=== PATIENT | male | born 1985 | race Caucasian/White ===

== ENCOUNTER 2025-01-25 07:05 | Emergency (ER) | payer OTHER, SELFPAY ==
--- OUTSIDE RECORDS SUMMARY | 2014-06-30 09:04 | XMS_ITS | Continuity of Care Document ---
Author Organization [facility] Address [address] [place] [address] Phone Care Team Providers Care Produce Sorter Name Role Phone Trinity Leigh Unavailable Unavailable Allergies, Adverse Reactions, Alerts Substance Reaction Status Criticality No Known Allergies Active No Inform ation Medications Medication Instructions Dosage Effective Dates (start - stop) Status Comments hydroxyzine HCl 25 mg tablet take 1 tablet by oral route 4 times every day if needed for anxiety - Active gabapentin 600 mg tablet take 1 tablet by oral route 3 times every day 600 MG - Active sertraline 100 mg tablet take 1 tablet by oral route every day 100 MG - Active Zubsolv 5.7 mg-1.4 mg sublingual tablet take one tab SL BID - Active Procedures Procedure Date OFFICE VISIT/EST LEVEL III OFFICE VISIT/EST LEVEL III OFFICE VISIT/EST LEVEL III OFFICE VISIT/EST LEVEL III OFFICE VISIT/EST LEVEL III OFFICE VISIT/NEW LEVEL III IMMUNIZATION ADM/SNGL CBC W/DIFF. METABOLIC PANEL: CHEM 19 HEPATITIS C/QUANT. Flu Quad; MultiDose 3+ Yrs (C) EXMPT Feb Advance Directives Directive Yes / No Effective Date File Name No Information Encounters Encounter Description Practice Location Reason(s) For Visit Diagnoses Date Provider Providers Copied on Encounter [facility], [address], [place], [place], [id number], tel:[phone] [facility] No Information 5 Justen Petersen. [address] [place], [place], [id number] , [place]. tel: [phone] [facility], [address] [facility] [address], [place], [place], [address], [place] tel:[phone] [facility] Depressive disorder, not elsewhere classified 5 Justen Petersen. [address] [place], [place], [address] , [place]. tel: [phone] OFFICE VISIT/EST LEVEL III [facility], [address] [facility] [address], [place], [place], [address], [place] tel:[phone] [facility] depression (chief complaint) Depressive disorder, not elsewhere classifiedAnxiet y state, unspecified 5 Justen Petersen. [address] [place], [place], [address] , [place]. tel: [phone] OFFICE VISIT/EST LEVEL III [facility], [address] [facility] [address], [place], [place], [address], [place] tel:[phone] [facility] depression (chief complaint)I nsomnia (chief complaint)A DD (chief complaint) Anxiety state, unspecifiedInsom niaADHD (attention deficit hyperactivity disorder) 4 Justen Petersen. [address] [place], [place], [address] , [place]. tel: [phone] OFFICE VISIT/EST LEVEL III [facility], [address] [facility] [address], [place], [place], [address], [place] tel:[phone] [facility] depression (chief complaint)I nsomnia (chief complaint) InsomniaAnxiety state, unspecified 0 - 4 Justen Petersen. [address] [place], [place], [address] , [place]. tel: [phone] OFFICE VISIT/[facility] III [facility], [address] [facility] [address], [place], [place], [address], [place] tel:[phone] [facility] establish care (chief complaint)d epression (chief complaint)I nsomnia (chief complaint) Anxiety state, unspecifiedDepre ssive disorder, not elsewhere classifiedUnspec ified viral hepatitis C without hepatic comaInsomnia 201 4 Justen Petersen. [address] [facility], [place], [place], [address] , [place]. [phone] Family History Family Member Type Diagnosis Age At Onset Brother Problem (finding) Anxiety Brother Problem (finding) GERD Mother Problem (finding) Crohn's disease Immunizations Vaccine Date Status Comments Flu Quad (MDV) 3 and up administered Source: New Immuniza tion Record Payers Payer name Insurance type Covered constitution party ID Authoriza tion(s) [employer] Medicaid CI [id number] [facility] [id number] [employer] Medicaid CI [id number] [facility] [id number] Social History Type Description Quantity Date Captured Comments Alcohol Use Details Unknown Caffeine Use Details Unknown Tobacco Use Status Smoking Status No Information Sex Male Chief Complaint And Reason For Visit No Information Reason For Referral Reason For Referral No Information Plan Of Treatment Date Type Action Status Referral Referred To: Alcides Muñoz Ordered: Referrals: Psychiatry. Alcides Muñoz. Evaluate and treat ordered History Of Present Illness Encounter Date Complaint History Of Prese nt Illness depression There is improve ment of initial symptoms. The patient reports functioning as somewhat difficult. The patient presents with anxious/fearful thoughts, difficulty falling asleep, racing thoughts and restlessness but denies difficulty staying asleep, diminished interest or pleasure or thoughts of or suicide. The patient's risk factors include drug abuse and history of depression. The depression is aggravated by conflict or stress and drug use. Additional information: pt states stratera makes him hyper and does not want to take. ADD pt states he has been told multiple times he has ADD; he is able to focus on things he likes, but not other things Insomnia The patient pres ents for insomnia. The patient has the following risk factors for insomnia: use of alcohol. The patient is experiencing difficulty concentrating. Additional information: pt stopped meds approx 1 wk ago due to fatigue in daytime. depression There is improve ment of initial symptoms. The patient presents with difficulty concentrating, racing thoughts and restlessness but denies anxious/fearful thoughts or thoughts of or suicide. The patient's risk factors include drug abuse. The depression is aggravated by conflict or stress and drug use. Additional information: pt states meds helping , pt having some side effects of impotence. Insomnia The patient pres ents for insomnia. The patient has the following risk factors for insomnia: use of alcohol. The patient is experiencing depression. The patient denies changes in appetite, difficulty initiating sleep or difficulty maintaining sleep. Additional information: pt states meds help. depression The patient does not present with difficulty falling asleep or difficulty staying asleep. Additional information: pt states meds help. Insomnia The patient pres ents for insomnia. The patient has the following risk factors for insomnia: use of alcohol. The patient is experiencing depression, difficulty initiating sleep and difficulty maintaining sleep. The patient denies changes in appetite or wheezing. depression The patient pres ents with difficulty falling asleep, difficulty staying asleep and restlessness. The patient's risk factors include history of depression. Additional information: pt states issues since in [facility]. establish care pt from recovery center Functional Status Date Functional Assessmen t No Information Instructions Date Instruction Additional Infor maryam Take medication(s) as prescribed Related to Depressive disorder, not elsewhere classified 911 or ER for suicid al/homicidal ideation Related to Depressive disorder, not elsewhere classified Follow up with counselor Related to Depressive disorder, not elsewhere classified med side effects can mimic symptoms of depression; notify for undesired sex Related to Depressive disorder, not elsewhere classified med side effects can mimic symptoms of depression; notify for undesired sex Related to Anxiety state, unspecified Take medication(s) as prescribed Related to Anxiety state, unspecified 911 or ER for suicid al/homicidal ideation Related to Anxiety state, unspecified med side effects can mimic symptoms of depression; notify for undesired sex Related to Anxiety state, unspecified Take medication(s) as prescribed Related to Anxiety state, unspecified 911 or ER for suicid al/homicidal ideation Related to Anxiety state, unspecified med side effects can mimic symptoms of depression; notify for undesired sex Related to Anxiety state, unspecified Take medication(s) as prescribed Related to Anxiety state, unspecified 911 or ER for suicid al/homicidal ideation Related to Anxiety state, unspecified Assessments Type Assessment Date No Information Patient Care Teams Name Effective Dates (start - stop) Status Members No Information
--- OUTSIDE RECORDS SUMMARY | 2023-10-20 06:30 | XMS_ITS ---
Author Organization [facility] Address [address] [place], [place] [address] Care Team Providers Care Critical Care Physician Assistant Name Role Phone Traci Sr Unavailable [phone] REASON FOR VISIT FERNANDO Encounters Encounter Location Date Provider Diagnosis [facility] [address] [place] [address] 10/20/2023 Traci Sr Plan Of Treatment No Information Progress Notes * Jose WISDOM PDOB:1985 (39 yo M)Acc No.[id number]:10/20/2023 Patient: Maged Jose QUINONES Provider: Padmini Santizo :1985 A ge:38 Y S ex:Male Date:10/20/2023 Address:[address], [facility] Subjective: * Chief Complaints: * 1 . FERNANDO. * Medical History: Objective: * Vitals: Assessment: Plan: * Treatment: * * Electronic signature of Mellissa Sr DDS on 01/25/2025 at 07:23 AM EDT Sign off status: Pending * Provider: Padmini Santizo Date: 10/20/2023 Generated for Wendi villalpando/Kwasi/eTandraesmitting on: 01/25/2025 07:23 AM EDT
--- OUTSIDE RECORDS SUMMARY | 2024-02-11 05:00 | XMS_ITS ---
Author Organization [facility] Address [address] [place] [address] Care Team Providers Care Landcare Facilitator Name Role Phone DO NOT USE NONE, DO NOT USE NONE Primary Care Pr ovider Unavailable JEANNA ANDREWS Unavailable [phone] JOHN FRANCO Unavailable [phone] REASON FOR VISIT RIGHT FOREARM ABSCESS Encounters Encounter Location Date Provider Diagnosis [facility] [address] [place], [place] [id number] 02/11/2024 JOHN FRANCO Plan Of Treatment No Information Progress Notes * Dusty WISDOMDOB:1985 (39 yo M)Acc No.[id number]:02/11/2024 Patient: Dusty MCLEOD Provider: Jessy FRANCO MD :1985 A ge:38 Y S ex:Male Date:02/11/2024 [address] [id number] Pcp: Subjective: * Chief Complaints: * 1 . RIGHT FOREARM ABSCESS. * Medical History: Objective: * Vitals: Assessment: Plan: * Treatment: * Billing Information: * Visit Code: * Procedure Codes: * Electronic signature of JONI FRANCO MD on 01/25/2025 at 07:23 AM EDT Sign off status: Pending * Provider: Jessy FRANCO MD Date: 1 Generated for Isii ng/Fadarrylg/eTransmitting on: 0 01/25/2025 07:23 AM EDT
--- OUTSIDE RECORDS SUMMARY | 2024-02-11 06:00 | XMS_ITS ---
Author [facility] Address [address] [place] [address] [place] [address] Care Team Providers Care Business Management Manager Name Role Phone DO NOT USE NONE, DO NOT USE NONE Primary Care Pr ovidmiriam Unavailable JEANNA ANDREWS Unavailable [phone] JOHN FRANCO Unavailable [phone] REASON FOR VISIT I and D R forearm abscess Problems Problem Type SNOMED Code ICD Code Onset Dates Problem Status W/U Status Risk Notes Problem Abscess of forearm (79945989) Abscess of forearm, right (L02.413) Active confirmed Problem Other streptococcus as the cause of diseases classified elsewhere (B95.4) Active confirmed Encounters Encounter Location Date Provider Diagnosis [facility] [address] [facility] [place] [id number] 02/11/2024 JOHN FRANCO Abscess of forearm, right L02.413 and Other streptococcus as the cause of diseases classified elsewhere B95.4 Assessments Encounter Date Diagnosis (ICD Code) Assessment Notes Treatment Notes Treatment Clinical Notes Section Notes 02/11/2024 Abscess of forearm, right (ICD-10 - L02.413) 02/11/2024 Other streptococcus as the cause of diseases classified elsewhere (ICD-10 - B95.4) Plan Of Treatment No Information Progress Notes * NITESHDusty MonteroDOB:1985 (39 yo M)Acc No.[id number]:02/11/2024 Patient: Dusty MCLEOD Provider: Jessy FRANCO MD :1985 A ge:38 Y S ex:Male Date:02/11/2024 [id number] Pcp: * Billing Information: * Visit Code: * Procedure Codes: 74416 INITIAL INPATIENT CARE - L2. Modifiers: 57 [id number] INCISION DRAINAGE FOREARM OR WRIST DEEP. Modifiers: RT * Electronic signature of JONI FRANCO MD on 01/25/2025 at 07:23 AM EDT Sign off status: Pending * Provider: Jessy FRANCO MD Date: 1 Generated for Wendi villalpando/Kwasi/Cosmeitting on: 0 01/25/2025 07:23 AM EDT
[2025-01-25 07:11] VITALS: BP 140/87; PULSE 92; TEMP 37.6; O2SAT 98; BMI 26.5
--- OUTSIDE RECORDS SUMMARY | 2025-01-25 07:23 | XMS_ITS | Clinical Summary ---
Author Organization [facility] Address [address] [place] [address] Care Team Providers Care Rail Filler Name Role Phone Unknown, Attending Provider Primary Care Provide r Unavailable Sanajero Richie Hernandez Source Comments This information has been disclosed to you from confidential records protectedfrom disclosure by state law. You shall make no further disclosure of thisinformation without the specific, written, and informed release of theindividual to whom it pertains, or as otherwise permitted by law. A generalauthorization for the release of medical or other information is not sufficientfor the purposes of therelease of HIV test results or diagnoses. [id number] Allergies Active Allergy Reactions Criticality Noted Date Comments Bupropion Other (See Comments) 06/11/2022 seizures Lamotrigine Rash High 07/02/2022 Medications * This document contains information received from the source organization and may not represent a complete record from that organization. levETIRAcetam (KEPPRA) 500 MG tabletIndication s:Focal epilepsy ([facility]) Take 1 tablet (500 mg total) by mouth 2 times a day. 60 tablet 07/02/2022 Active Active Problems Problem Noted Date Diagnosed Date Pain of left tibia 04/08/2017 Pyuria 03/29/2017 Tibia/fibula fracture, shaft , left, closed, initial encounter 03/27/2017 Immunizations Immunization Administration Dates Next Due Tetanus 11/23/2008 Family History Medical History Relation Comments Seizures Maternal Grandfather Suicidality Maternal Grandfather Relation Status Comments Father Alive Maternal Grandfather Mother Alive Social History Tobacco Use Types Packs/Day Years Used Date Smoking Tobacco: Every Day E-cigs/Vape Passive Smoke Exposure: Never Smokeless Tobacco: Former Chew Tobacco Cessation:Ready to Q uit: Not Asked; Counseling Given: Not Answered Alcohol Use Standard Drinks/Week Comments Not Currently 0 (1 standard drink = 0.6 oz pure alcohol) prior alcohol use, last use 4 months ago PHQ-2 Answer Date Recorded PHQ-2 Total Score 0 06/24/2022 Yearly Questionnaire Answer Date Record ed Do you need any assistance w ith obtaining housing, meals, medication, transportation or medical equipment? No 06/24 Assistance needed for: Not on file 3 Yearly Questionnaire Answer Date Record ed Do you need any assistance w ith obtaining housing, meals, medication, transportation or medical equipment? No 06/24 Assistance needed for: Not on file 3 Yearly Questionnaire Answer Date Record ed Do you need any assistance w ith obtaining housing, meals, medication, transportation or medical equipment? No 06/24 Assistance needed for: Not on file Sex and Gender Information Value Date Recorded Sex Assigned at Not on file Legal Sex Male 9:35 PM EST Gender Identity Not on file Sexual Orientation Not on file Last Filed Vital Signs Vital Sign Reading Time Taken Comments Blood Pressure 120/75 07/02/2022 12:27 PM EST Pulse 76 07/02/2022 12:27 PM EST Temperature 36.7 C (98.1 F) 05/31/2022 10:32 AM EST Respiratory Rate 18 07/02/2022 12:27 PM EST Oxygen Saturation 98% 07/02/2022 12:27 PM EST Inhaled Oxygen Concentration 98% 07/02/2022 1 2:27 PM EST Weight 77.6 kg (171 lb) 07/02/2022 12:27 PM EST Height 179.1 cm (5' 10.5 ) 07/02/2022 12:[address] Body Mass Index 24.19 07/02/2022 12:27 PM EST Plan of Treatment Health Maintenance Due Date Last Done Comments Alcohol Misuse Screening 2003 Immunization: Pneumococcal ( 1 of 2 - PCV) 2004 Depression Screening 06/24/2023 06/24/2022, 01/07/20 19 Immunization: COVID-19 ( season) 2024 Immunization: Influenza (MyC abreu) (#1) 2024 03/10/2014 Immunization: DTaP/Tdap/Td ( 8 - Td or Tdap) 06/25/2032 06/25/2022, 02/24/2022, 11/25/1997, Additional history exists Hepatitis C Screening (Ma-papeteriet) Completed 7, 03/28/2017 HIV Screening Completed 03/29/2017 Medical Devices Implanted Type Area Sr Risk Management Consultant Device Identifier Shelf Expiration Date Model / Serial / Lot Nail 9mm 345mm Tib T2 Im Std - [id number] Implanted:Qty: 1 on 03/28/2017 by Mil Benavides MD at [facility] Main Orthopedic Left: Tibia [employer] 12/26/2021 [id number] S / / [id number] Scr Bn 5mm 35mm Ti Ft Lck Strl - [id number] Implanted:Qty: 1 on 03/28/2017 by Mil Benavides MD at [facility] Main Screw Left: Tibia [employer] 12/26/2021 [id number] S / / [id number] Scr Bn 5mm 45mm Ti Ft Lck Strl - [id number] Implanted:Qty: 1 on 03/28/2017 by Mil Benavides MD at [facility] Main Screw Left: Tibia [employer] 11/25/2021 [id number] S / / [id number] Scr Bn 5mm 40mm Ti Ft Lck Strl - [id number] Implanted:Qty: 1 on 03/28/2017 by Mli Benavides MD at [facility] Main Screw Left: Tibia [employer] 11/25/2021 [id number] S / / [id number] Scr Bn 5mm 50mm Ti Ft Lck Strl - [id number] Implanted:Qty: 1 on 03/28/2017 by Mil Benavides MD at [facility] Main Screw Left: Tibia [employer] 12/26/2021 [id number] S / / [id number] Scr Bn 5mm 35mm Ti Ft Lck Strl - [id number] Implanted:Qty: 1 on 03/28/2017 by Mil Benavides MD at [facility] Main Screw Left: Tibia [employer] 12/26/2021 [id number] S / / [id number] Procedures Procedure Name Priority Date/Time Associated Diagnosis Comments HIV 1+2 ANTIBODY/ANTIGEN WITH REFLEX Routine 03/29/2017 10:52 AM EST HEPATITIS C ANTIBODY Routine 03/28/2017 8:06 PM EST from Last 3 Months or Most Recently Relevant to Health Maintenance Results * HIV 1+2 Antibody/Antigen with Reflex (03/29/2017 10:52 AM EST) HIV 1+2 AB/AGN Nonreactive Nonreactive 03/29/2017 11:51 AM EST [facility] Serum specimen (specimen) 03/29/2017 10:52 AM EST 03/29/2017 11:07 AM EST [facility] - 03/29/2017 11:51 AM EST HIV-1 p24 Antigen and HIV-1/HIV-2 Antibody not detected. Andrade Toscano MD LAB BLOOD ORDERABLES Final Resul t [facility] [address] * (ABNORMAL) Hepatitis C Antibody (03/28/2017 8:06 PM EST) HCV Ab Reactive( A) Nonreactive 03/28/2017 9:47 PM EST [facility] Comment: Health Department notified in accordance with reportable infectious disease guidelines. Health Department notified in accordance with reportable infectious disease guidelines. HCVAB Number 13.30(H) 0.00 - 0.79 S/CO 03/28/2017 9:47 PM EST [facility] Serum specimen (specimen) 03/28/2017 8:06 PM EST 03/28/2017 8:20 PM EST Narrative [facility] - 03/28/2017 9:47 PM EST Presumptive evidence of antibodies to HCV: follow CDC recommendations for supplemental testing. Lila Garcia MD LAB BLOOD ORDERABLES Final Result [facility] [address] [place] [address], [facility] from Last 3 Months or Most Recently Relevant to Health Maintenance Insurance [employer] Member Subscriber Plan / Payer (Ef fective 2017-Present) Name:Dusty Wisdom Relation to Subscriber:Self Name:Dusty Wisdom Payer ID:[id number] Group ID:Not on file Type:Work Comp Address: [address] [place] [address] Advance Directives For more information, please contact: [phone] * Full Code (Latest Code Status on File) Date Activated Date Inactivated Comments 02/11/2021 10:49 PM 02/14/2021 3:03 PM * Full Code Date Activated Date Inactivated Comments 03/27/2017 4:44 PM 03/29/2017 9:01 PM Care Teams Rail Filler Relationship Specialty Start Date End Date Unknown, Attending Provider PCP - General 06/17/22 Richie Schulz Consulting Physician [facility] Neurology 09/26/23
--- OUTSIDE RECORDS SUMMARY | 2025-01-25 07:23 | XMS_ITS | Clinical Summary ---
Author Organization [facility] Address [address], [address] [place] [address] Care Team Providers Care Exchange Engineer Name Role Phone Unavailable Primary Care Provider Unavailabl e Allergies No known active allergies Medications ibuprofen (ADVIL;MOTRIN) 600 MG tablet Take 1 tablet by mouth every 6 hours as needed for Pain 30 tablet 0 10/06/2015 Active Multiple Vitamins-Minera ls (THERAPEUTIC MULTIVITAMIN-MT NERALS) tablet Take 1 tablet by mouth daily Active naproxen (NAPROSYN) 500 MG tablet Take 1 tablet by mouth 2 times daily for 20 doses 20 tablet 03/16/2017 Active lidocaine (LIDODERM) 5 % Place on affected air for up to 12 hours. Do not leave on longer than 12 hours 30 patch 03/17/2017 Active naproxen (NAPROSYN) 500 MG tablet Take 1 tablet by mouth 2 times daily as needed for Pain 30 tablet 03/17/2017 Active methocarbamol (ROBAXIN) 500 MG tablet Take 2 tablets by mouth 4 times daily as needed (spasms) 80 tablet 03/17/2017 Active ondansetron (ZOFRAN) 4 MG tablet Take 1 tablet by mouth every 8 hours as needed for Nausea or Vomiting 16 tablet 09/08/2017 Active dicyclomine (BENTYL) 10 MG capsule Take 1 capsule by mouth 3 times daily as needed (abdominal cramping) 30 capsule 09/08/2017 Active Social History Tobacco Use Types Packs/Day Years Used Date Smoking Tobacco: Some Days Cigarettes Smokeless Tobacco: Current Tobacco Cessation:Ready to Q uit: Not Asked; Counseling Given: Not Answered Alcohol Use Standard Drinks/Week Comments No 0 (1 standard drink = 0.6 oz pur e alcohol) Recovery Sex and Gender Information Value Date Recorded Sex Assigned at Not on file Legal Sex Male 11:43 PM EST Gender Identity Not on file Sexual Orientation Not on file Last Filed Vital Signs Vital Sign Reading Time Taken Comments Blood Pressure 140/83 03/02/2022 6:15 PM EDT Pulse 101 03/02/2022 6:15 PM EDT Temperature 36.4 C (97.6 F) 03/02/2022 6:15 PM EDT Respiratory Rate 17 03/02/2022 6:15 PM EDT Oxygen Saturation 100% 03/02/2022 6:15 PM EDT Inhaled Oxygen Concentration - - Weight 86.2 kg (190 lb) 03/02/2022 7:21 PM EDT Height 180.3 cm (5' 11 ) 03/16/2017 11:16 AM EST Body Mass Index 26.5 03/16/2017 11:16 AM EST Plan of Treatment Health Maintenance Due Date Last Done Comments Depression Screen 1997 Varicella vaccine (1 of 2 - 13+ 2-dose series) 1998 Pneumococcal 0-49 years Vaccine (1 of 2 - PCV) 2004 Flu vaccine (#1) 11/26/2024 COVID-19 Vaccine (1 - 2023-2 5 season) 2024 DTaP/Tdap/Td vaccine (2 - Td or Tdap) 02/25/2032 02/24/2022 Hib vaccine Completed 08/09/1988 Hepatitis B vaccine Completed 06/24/1998, 12/23/1997, 11/25/1997 HIV screen Completed 01/11/2022 Hepatitis C screen Completed 01/11/2022, 08/20/2019 HPV vaccine (No Doses Required) Completed Hepatitis A vaccine Aged Out No longe r eligible based on patient's age to complete this topic Meningococcal (ACWY) vaccine Aged Out No longer eligible based on patient's age to complete this topic Meningococcal B vaccine Aged Out No l onger eligible based on patient's age to complete this topic Polio vaccine Aged Out No longer elig ible based on patient's age to complete this topic Procedures Procedure Name Priority Date/Time Associated Diagnosis Comments HIV SCREEN Routine 01/11/2022 1:57 PM EDT HEPATITIS PANEL, ACUTE Routine 01/11/2022 1:57 PM EDT from Last 3 Months or Most Recently Relevant to Health Maintenance Results * (ABNORMAL) Hepatitis Panel, Acute (01/11/2022 1:57 PM EDT) Hep A IgM Non-react ramon Non-react ramon 01/12/2022 3:05 AM EDT [facility] Hep B Core Ab, IgM Non-react ramon Non-react ramon 01/12/2022 12:57 PM EDT [facility] Hep B S Ag Interp Non-react ramon Non-react ramon 01/12/2022 3:05 AM EDT [facility] Hep C Ab Interp REACTIVE( A) Non-react ramon 01/12/2022 1:59 PM EDT [facility] Comment: REACTIVE Screen: Confirmation with Hepatitis C RIBA not available. Depending on clinical history, Hepatitis C Virus (HCV)by Quantitative NAAT ([id number]) should be considered as an alternative to this test although it is not an equivalent. If HCV by Quantitative NAAT is desired, please reorder. A new sample may be needed due to specimen requirements for HCV by Quantitative NAAT. 01/11/2022 1:57 PM EDT 01/12/2022 1:04 AM EDT Narrative [facility] - 01/12/2022 2:00 PM EDT CALL doctor [id number] tel. [phone], [phone] us Lakia Santa MARKETING SERVICES MANAGER - FIELD HEALTH OFFICER IMMUNOLOGY ORDERABL ES Final Result [facility] [address] [facility]. [address] [phone] * HIV Screen (01/11/2022 1:57 PM EDT) HIV Ag/Ab Non-Reacti ve Non-reacti ve 01/12/2022 1:45 PM EDT [facility] HIV-1 Antibody Non-Reacti ve Non-reacti ve 01/12/2022 1:45 PM EDT [facility] HIV ANTIGEN Non-Reacti ve Non-reacti ve 01/12/2022 1:45 PM EDT [facility] HIV-2 Ab Non-Reacti ve Non-reacti ve 01/12/2022 1:45 PM EDT [facility] 01/11/2022 1:57 PM EDT 01/12/2022 1:04 AM EDT Narrative [facility] - 01/12/2022 12:35 PM EDT CALL doctor [id number] tel. [phone], [phone] Lakia Santa MARKETING SERVICES MANAGER - FIELD HEALTH OFFICER IMMUNOLOGY ORDERABL ES Edited Result - Final [facility]. [address] [phone] from Last 3 Months or Most Recently Relevant to Health Maintenance Insurance [facility] MED[facility]
--- OUTSIDE RECORDS SUMMARY | 2025-01-25 07:23 | XMS_ITS | Patient Health Record ---
Author Organization [facility] Address [address] [place] [id number] Care Team Providers Care Data Science And Iot Manager Name Role Phone DO NOT USE NONE, DO NOT USE NONE Primary Care Pr ovidmiriam Unavailable JEANNA ANDREWS Unavailable [phone] JOHN FRANCO Unavailable [phone] Reason For Referral No Information Problems Problem Type SNOMED Code ICD Code Onset Dates Problem Status W/U Status Risk Notes Problem Other streptococcus as the cause of diseases classified elsewhere (B95.4) Active confirmed Problem Abscess of forearm (01256489) Abscess of forearm, right (L02.413) Active confirmed Problem Closed fracture pubis (974500271) Pubic ramus fracture, left, closed, initial encounter (S32.592A) Active confirmed Problem Compression fracture of L1 lumbar vertebra, closed, initial encounter (S32.010A) Active confirmed Encounters Encounter Location Date Provider Diagnosis [facility] OP [address] [place], [place] [id number] 02/11/2024 JOHN FRANCO Abscess of forearm, right L02.413 and Other streptococcus as the cause of diseases classified elsewhere B95.4 [facility] [address] [address] [facility] [address] [facility] [address] [place], [place] [id number] 02/24/2024 JOHN FRANCO Assessments Encounter Date Diagnosis (ICD Code) Assessment Notes Treatment Notes Treatment Clinical Notes Section Notes 02/11/2024 Abscess of forearm, right (ICD-10 - L02.413) 02/11/2024 Other streptococcus as the cause of diseases classified elsewhere (ICD-10 - B95.4) Plan Of Treatment No Information Insurance Providers Payer Name Payer Address Payer Phone Subscriber Number Group Number Insured Name Patient Relationship to Insured Coverage Start Date Coverage End Date [employer] [address] [address] [place] [phone] [id number] Dusty Wisdom Self - patient is the insured
--- OUTSIDE RECORDS SUMMARY | 2025-01-25 07:23 | XMS_ITS | Clinical Summary ---
Author Organization [facility] 06 Care Team Providers Care Clinical Immunologist Name Role Phone Pcp, None Primary Care Provider [phone] Allergies Active Allergy Reactions Criticality Noted Date Comments None 08/23/2002 Medications naloxone 4 mg/0.1 mL LIQD nasal spray SIG: Ashby one puff into one nostril upon signs of opioid overdose. Call 911. May repeat x 1 (Once). 1 each 1 08/14/2021 Active hydrOXYzine Pamoate (VISTARIL) 25 mg capsule Take 25 mg by mouth 3 (three) times daily as needed. Active guanFACINE (TENEX) 1 MG TABS Take 1 mg by mouth nightly. Active Buprenorphine ER (SUBLOCADE) 300 MG/1.5ML SOSY Use every 30 (thirty) days. Active citalopram (CELEXA) 20 MG TABS Take 1 tablet by mouth daily. 30 tablet 06/26/2022 Active levETIRAcetam (KEPPRA) 500 mg tablet Take 1 tablet by mouth 2 (two) times daily. 60 tablet 06/26/2022 Active Active Problems Problem Noted Date Diagnosed Date Recurrent seizures 06/26/2022 History of drug abuse in remission 06/26/2022 Lactic acidosis 06/26/2022 Face lacerations, initial encounter 06/26/2022 Closed fracture of middle phalanx of finger 04/2022 Varicella Other acne Immunizations Immunization Administration Dates Next Due DTP 02/23/1990, 7,1985,1985,1985 Hepatitis B, Adult 06/24/1998,12/23/1997, 998 Hib PRP-T conjugate, IM (Act HIB, Hiberix) 08/09/1988 Measles/Mumps/Rubella, SQ 12/23/1997,07/08/1986 TB-PPD 07/10/1999,01/13/1995 Tdap (Tetanus, Diphtheria & Pertussis) 06/25/2022 Trivalent Poliovirus Vaccine , Live, Oral 02/23/1990,11/21/1986,1985,1985 dT, adult 11/25/1997 Family History Medical History Relation Name Comments Epilepsy[Other] Maternal Grandfather Cancer Neg Hx Diabetes Neg Hx Heart Disease Neg Hx High BP Neg Hx High Cholesterol Neg Hx Relation Name Status Comments Maternal Grandfather Social History Tobacco Use Types Packs/Day Years Used Date Smoking Tobacco: Every Day Cigarettes 1 3 Smokeless Tobacco: Never Tobacco Cessation:Ready to Q uit: No; Counseling Given: Yes Alcohol Use Standard Drinks/Week Comments Yes 0 (1 standard drink = 0.6 oz pur e alcohol) weekly Food Insecurities Answer Date Recorded Worried about running out of food Not on file 05/17/2023 Food Bought Not on file 05/17/2023 Housing/Utilities Answer Date Recorded Worried about losing home Not on file 2023 Stayed outside house Not on file 05/17/2023 Unable to get utilities Not on file 05/17/19 Interpersonal Safety Answer Date Record ed Feel physically or emotionally unsafe where curr ently live Not on file 05/17/2023 Harm by anyone Not on file 05/17/2023 Emotionally Harmed Not on file 05/17/2023 Transportation Answer Date Recorded Worried about transportation Not on file Utilities Answer Date Recorded Worried about losing home Not on file 2023 Stayed outside house Not on file 08/29/2023 Unable to get utilities Not on file 08/29/19 Sex and Gender Information Value Date Recorded Sex Assigned at Not on file Legal Sex Male 11:32 PM EDT Gender Identity Not on file Sexual Orientation Not on file Last Filed Vital Signs Vital Sign Reading Time Taken Comments Blood Pressure 100/54 06/26/2022 5:28 PM EST Pulse 62 06/26/2022 5:28 PM EST Temperature 35.4 C (95.8 F) 06/26/2022 5:28 PM EST Respiratory Rate 16 06/26/2022 5:28 PM EST Oxygen Saturation 99% 06/26/2022 5:28 PM EST Inhaled Oxygen Concentration - - Weight 77.6 kg (171 lb) 06/26/2022 3:10 AM EST Height 180.3 cm (5' 10.98 ) 06/26/2022 3:[address] Body Mass Index 23.86 06/26/2022 3:10 AM EST Plan of Treatment Health Maintenance Due Date Last Done Comments Pneumococcal 0-49 (1 of 2 - PCV) 2004 HPV (1 - 3-dose SCDM series) 2012 Influenza Vaccine (#1) 2024 DTap,Tdap,and Td (8 - Td or Tdap) 06/25/2032 06/25/2022, 02/24/2022, 02/23/1990, Additional history exists RSV Vaccine (60+ or ) (1 - 1-dose 75+ series) 2060 Meningococcal conjugate valent 4 (MCV4) Aged Out No longer eligible based on patient's age to complete this topic RSV Immunization (<20 months) Aged Out No longer eligible based on patient's age to complete this topic Insurance [facility] MEDICAID on file Advance Directives * Full Code (Latest Code Status on File) Date Activated Date Inactivated Comments 06/26/2022 12:19 AM 06/26/2022 8:47 PM Care Teams Clinical Immunologist Relationship Specialty Start Date End Date Pcp, None, PCP - General Internal Medicine 11/08/15
--- OUTSIDE RECORDS SUMMARY | 2025-01-25 07:23 | XMS_ITS | Clinical Summary ---
Author Organization [facility] Address [address] [place], [place] [address] Phone Care Team Providers Care Long Lines Operator Name Role Phone No Pcp, Per Patient Primary Care Provider Unavai lable Allergies No known active allergies Medications * This document contains information received from the source organization and may not represent a complete record from that organization. No known medications Active Problems Problem Noted Date Diagnosed Date IVDU (intravenous drug user) 11/21/2024 Overview (11/21/2024): remission since 2023 Other acne 11/21/2024 Drug induced insomnia 11/21/2024 Methamphetamine dependence 11/21/2024 Opioid dependence with opioid-induced mood disor yessica 11/21/2024 Cellulitis of right buttock 09/27/2024 Abscess of skin or subcutaneous tissue History of seizure disorder 07/21/2024 MRSA (methicillin resistant Staphylococcus aureu s) 07/21/2024 Homeless 07/20/2024 Hypotension 07/20/2024 Cellulitis 07/19/2024 Acute kidney injury 02/13/2024 Abscess of right arm 02/11/2024 Sepsis 02/11/2024 Closed fracture of hip 10/21/2022 Cocaine abuse, uncomplicated 10/21/2022 Closed fracture of lumbar vertebra 10/21/2022 Opioid dependence on agonist therapy 10/21/2022 Closed fracture of middle phalanx of finger 04/2022 Face lacerations, initial encounter 06/26/2022 Lactic acidosis 06/26/2022 Recurrent seizures 06/26/2022 Fracture of pelvis 02/28/2022 Fall from window 02/24/2022 Pyuria 03/29/2017 Resolved Problems Problem Noted Date Diagnosed Date Resolved Date Episodic mood disorder 07/27/202411/21 History of intravenous drug abuse 07/21/2024 11/21/2024 Methadone use 07/21/2024 11/21/2024 Encounters * This document contains information received from the source organization and may not represent a complete record from that organization. Date Type Department Care Team Description 11/21/2024 External Contact [facility] [address] Jayla Maria MD Medical clearance for psychiatric admission (Primary Dx); Substance induced mood disorder (HCC); Suicidal ideations; Opioid use disorder, severe, dependence (HCC); Opioid dependence on agonist therapy (HCC); Methamphetamine use disorder, severe (HCC); Polysubstance abuse (HCC); IVDU (intravenous drug user); Nicotine use disorder; Homeless; Overweight (BMI 25.0-29.9); Elevated BP without diagnosis of hypertension; Tachycardia; Chronic hepatitis C without hepatic coma (HCC); Cellulitis, unspecified cellulitis site; MRSA (methicillin resistant Staphylococcus aureus); History of seizure due to alcohol withdrawal; Hyperglycemia from Last 3 Months Social History Tobacco Use Types Packs/Day Years Used Date Smoking Tobacco: Every Day Cigarettes Smokeless Tobacco: Current Alcohol Use Standard Drinks/Week Comments Not Currently 0 (1 standard drink = 0.6 oz pur e alcohol) Sexually Active Control Partners Comments Yes Sex and Gender Information Value Date Recorded Sex Assigned at Not on file Legal Sex Male 2:01 PM EDT Gender Identity Not on file Sexual Orientation Not on file Last Filed Vital Signs Vital Sign Reading Time Taken Comments Blood Pressure 99/68 10/21/2024 2:00 PM EDT Pulse 77 10/21/2024 2:00 PM EDT Temperature 36.8 C (98.3 F) 10/21/2024 10:35 AM EDT Respiratory Rate 16 10/21/2024 2:00 PM EDT Oxygen Saturation 98% 10/21/2024 2:00 PM EDT Inhaled Oxygen Concentration - - Weight 79.4 kg (175 lb) 10/21/2024 10:35 AM EDT Height 177.8 cm (5' 10 ) 10/21/2024 10:35 AM EDT Body Mass Index 25.11 10/21/2024 10:35 AM EDT Plan of Treatment Health Maintenance Due Date Last Done Comments Annual Wellness Exam 1988 Pneumococcal Vaccine 0-49 (1 of 2 - PCV) 2004 COVID-19 Vaccine (1 - season) 2024 Influenza Vaccine (#1) 2024 03/10/2014 DTaP/TDaP/Td (8 - Td or Tdap) 06/25/2032 06/25/2022, 02/24/2022, 11/25/1997, Additional history exists Hepatitis B Vaccine Completed 06/24/1998, 12/23/1997, 11/25/1997 Meningococcal B Vaccine Aged Out No l onger eligible based on patient's age to complete this topic Additional Health Concerns Infection Onset Date Last Indicated MRSA Comment:L buttock & nares Added from external infection. Source: [employer], [facility]. 07/14/2024 Insurance [facility] Care Teams Long Lines Operator Relationship Specialty Start Date End Date No Pcp, Per Patient PCP - General 10/21/24
--- OUTSIDE RECORDS SUMMARY | 2025-01-25 07:23 | XMS_ITS | Clinical Summary ---
Author Organization [facility] Address [address] [place] [address] Care Team Providers Care Keg Raiser Name Role Phone Unavailable Primary Care Provider Unavailabl e Source Comments [facility] is fully rolled out with thefollowing exceptions:General Clinical Research [facility] Social History Tobacco Use Types Packs/Day Years Used Date Smoking Tobacco: Never Assessed Sex and Gender Information Value Date Recorded Sex Assigned at Not on file Legal Sex Male 5:09 AM EST Gender Identity Not on file Sexual Orientation Not on file Plan of Treatment Health Maintenance Due Date Last Done Comments MMR IMMUNIZATION (1 of 1 - S tandard series) 1986 DTAP/Tdap/Td IMMUNIZATION (1 - Tdap) 1992 VARICELLA IMMUNIZATION (1 of 2 - 13+ 2-dose series) 1998 HEPATITIS B IMMUNIZATION (1 of 3 - 19+ 3-dose series) 2004 HPV IMMUNIZATION (1 - 3-dose SCDM series) 2012 AMB SEASONAL FLU VACCINE (#1) 12/27/2024 COVID-19 Vaccine (2023-2 5 season) 2024 HIB IMMUNIZATION Aged Out No longer e ligible based on patient's age to complete this topic IPV IMMUNIZATION Aged Out No longer e ligible based on patient's age to complete this topic MCV4 IMMUNIZATION Aged Out No longer eligible based on patient's age to complete this topic MENINGOCOCCAL B VACCINE Aged Out No l onger eligible based on patient's age to complete this topic PNEUMOCOCCAL IMMUNIZATION Aged Out No longer eligible based on patient's age to complete this topic Respiratory Syncytial Virus (RSV) <20mo Aged Out No longer eligible b ased on patient's age to complete this topic
--- OUTSIDE RECORDS SUMMARY | 2025-01-25 07:23 | XMS_ITS | Clinical Summary ---
Author Organization [facility] Address [address] [place] [address] Care Team Providers Care Payroll Benefits Clerk Name Role Phone Unavailable Primary Care Provider Unavailabl e Source Comments PLEASE NOTE, if this patient is a minor, it may be UNLAWFUL to discuss sensitive information that is contained in these records (such as FAMILY PLANNING, MENTAL HEALTH or SUBSTANCE ABUSE) with the minor patient's parent or other person without the patient's specific authorization.[facility] Allergies Active Allergy Reactions Criticality Noted Date Comments Bupropion 06/11/2022 Other Reaction(s): Other (See Comments) seizures Lamotrigine Rash High 07/02/2022 Medications biotin 5 mg cap TAKE TWO Capsules BY MOUTH ONCE DAILY Active ergocalciferol (VITAMIN D-2) 1,250 mcg (50,000 unit) capsule TAKE ONE Capsule BY MOUTH AT a specific time ONCE WEEKLY Active buPROPion XL (WELLBUTRIN XL) 150 mg 24 hr tabletIndication s:Major depressive disorder in partial remission, unspecified whether recurrent Take 1 Tablet by mouth once daily 30 Tablet 5 3 Active FISH OIL 60-90-500 mg capIndications:O pioid use disorder Take 1 Capsule by mouth daily. 90 Capsule 1 3 Active pyridoxine, vitamin B6, 100 mg tabletIndication s:Opioid use disorder Take 1 Tablet by mouth once daily 90 Tablet 1 3 Active sildenafiL (VIAGRA) 50 mg tabletIndication s:Erectile dysfunction, unspecified erectile dysfunction type Take 1 Tablet by mouth once daily as needed for erectile dysfunction 12 Tablet 2 3 Active buPROPion HCL (WELLBUTRIN XL) 300 mg 24 hr tabletIndication s:Major depressive disorder in partial remission, unspecified whether recurrent Take 1 Tablet by mouth every morning 30 Tablet 5 3 Active cholecalciferol (VITAMIN D-3) 50 mcg (2,000 unit) capsuleIndicatio ns:Opioid use disorder Take 1 Capsule by mouth once daily 90 Capsule 1 3 Active buPROPion HCL (WELLBUTRIN XL) 300 mg 24 hr tablet Take 1 Tablet by mouth once daily Active Active Problems No known active problems Family History Medical History Relation Name Comments Irritable Bowel Syndrome Brother No Known Problems Father Inflammatory Bowel Disease Mother Other Mother Relation Name Status Comments Brother Father Mother Social History Tobacco Use Types Packs/Day Years Used Date Smoking Tobacco: Former Cigarettes Smokeless Tobacco: Never Tobacco Cessation:Counseling Given: Not Answered Comments:Smoked cigarettes until 2 years ago, 18-35 pack per day Alcohol Use Standard Drinks/Week Comments No 0 (1 standard drink = 0.6 oz pur e alcohol) Social Connections Answer Date Recorded Connectedness 0 01/12/2024 Financial Resource Strain Answer Date R ecorded Financial Resource Strain 0 2022 Stress Answer Date Recorded Stress 0 03/28/2023 Physical Activity Answer Date Recorded Physical Activity 0 03/28/2023 Food Insecurity Answer Date Recorded Food 0 01/22/2024 Transportation Needs Answer Date Record ed Transportation 0 03/28/2023 Housing Stability Answer Date Recorded Housing 0 03/28/2023 Safety and Environment Answer Date Jered rded Safety 0 03/28/2023 Utilities Answer Date Recorded Utilities 0 03/28/2023 Employment Answer Date Recorded Stress 0 01/12/2024 Sex and Gender Information Value Date Recorded Sex Assigned at Male 04/11/2023 11:26 AM PST Legal Sex Male 11:03 AM PDT Gender Identity Male 04/11/2023 11:26 AM PST Sexual Orientation Straight 04/11/2023 11 :26 AM PST Last Filed Vital Signs Vital Sign Reading Time Taken Comments Blood Pressure 122/84 07/30/2023 6:14 PM EDT Pulse 88 07/30/2023 6:14 PM EDT Temperature 36.4 C (97.5 F) 07/30/2023 6:14 PM EDT Respiratory Rate 16 07/30/2023 6:14 PM EDT Oxygen Saturation 98% 07/30/2023 6:14 PM EDT Inhaled Oxygen Concentration - - Weight 83.9 kg (185 lb) 07/30/2023 6:14 PM EDT Height 180.3 cm (5' 11 ) 07/30/2023 6:14 PM EDT Body Mass Index 25.8 07/30/2023 6:14 PM EDT Plan of Treatment Health Maintenance Due Date Last Done Comments Anxiety Screening 1985 Tobacco Screening 1985 Imm-HPV (1 - 3-dose SCDM series) 2012 Alcohol and Drug Screen 04/28/2024 04/11/2023 Depression Annual Screen 04/28/2024 [id number] ( season) 2024 Imm-Influenza (#1) 2024 03/10/2014 Hypertension Screening (#1) 07/29/2026 Diabetes Screening 10/14/2026 10/15/2023, 1 06/12/2022, 04/11/2023, Additional history exists Imm-DTaP/Tdap/Td (8 - Td or Tdap) 06/25/2032 06/25/2022, 02/24/2022, 11/25/1997, Additional history exists Imm-Hepatitis B Discontinued 06/24/1998, 11/27, 11/25/1997 HIV Screening Completed 07/31/2023, 12/27, 03/29/2017, Additional history exists Syphilis Screening Discontinued 07/31/2023, 06/25/2013 Procedures Procedure Name Priority Date/Time Associated Diagnosis Comments HIV 1/2 AG & AB W/RFLX (4TH GEN) Routine 07/31/2023 7:25 AM EDT Chronic hepatitis C without hepatic coma (HCC-CMS) Exposure to sexually transmitted disease (STD) Encounter for screening for other viral diseases Screening examination for venereal disease SYPHILIS ANTIBODY CASCADING REFLEX Routine 07/31/2023 7:25 AM EDT Chronic hepatitis C without hepatic coma (HCC-CMS) Exposure to sexually transmitted disease (STD) Encounter for screening for other viral diseases Screening examination for venereal disease COMPREHENSIVE METABOLIC PANEL Routine 04/11/2023 3:56 PM EST Chronic hepatitis C without hepatic coma (HCC-CMS) from Last 3 Months or Most Recently Relevant to Health Maintenance Results * SYPHILIS ANTIBODY CASCADING REFLEX (07/31/2023 7:25 AM EDT) T. PALLIDUM AB, EIA NEGATIVE NEGATIVE 08/02/2023 1:03 PM EDT [email or web address] ALEXA ALVAREZ Blood Blood / Unknown 07/31/2023 7 :25 AM EDT 07/31/2023 9:30 PM EDT Narrative [facility] ALEXA CHANELE - 08/02/2023 1:06 PM EDT . No antibodies to T. pallidum (the agent causing syphilis) were detected in the specimen. This result, however, does not exclude very recent T. pallidum infection; testing of a second specimen, collected 2-4 weeks after this specimen, is recommended if the index of suspicion for recent infection is high. . [facility] - BLOOD DRAW Final Resul t [email or web address] [place]OMA AN[address] [place] [address] [email or web address] [place] [address] [place] [address] * HIV 1/2 AG & AB W/RFLX (4TH GEN) (07/31/2023 7:25 AM EDT) HIV AG/AB, 4TH GEN NON-REACTI VE NON-REACT JOY 08/01/2023 3:04 PM EDT [email or web address] ALEXA ALVAREZ Blood Blood / Unknown 07/31/2023 7 :25 AM EDT 07/31/2023 9:30 PM EDT Narrative [facility] ALEXA CHANELE - 08/01/2023 3:11 PM EDT HIV-1 antigen and HIV-1/HIV-2 antibodies were not detected. There is no laboratory evidence of HIV infection. . PLEASE NOTE: This information has been disclosed to you from records whose confidentiality may be protected by state law. If your state requires such protection, then the state law prohibits you from making any further disclosure of the information without the specific written consent of the person to whom it pertains, or as otherwise permitted by law. A general authorization for the release of medical or other information is NOT sufficient for this purpose. . For additional information please refer to http://education.Incanthera/faq/IDP299 (This link is being provided for informational/ educational purposes only.) . . The performance of this assay has not been clinically validated in patients less than 2 years old. . [facility] - BLOOD DRAW Final Resul t [email or web address] [place] [address] [employer] [facility] [place] [address] [email or web address] [place] [address] [place] [address] * (ABNORMAL) COMPREHENSIVE METABOLIC PANEL (04/11/2023 3:56 PM EST) GLUCOSE, SERUM 75 70 - 99 mg/dL [facility] BUN 17 6 - 20 mg/dL [facility] CREATININE, SERUM 1.24 0.76 - 1.27 mg/dL [facility] eGFR 76 >59 mL/min/1.7 3 [facility] BUN/CREATININE RATIO 14 9 - 20 [facility] SODIUM, SERUM 137 134 - 144 mmol/L [facility] POTASSIUM, SERUM 4.6 3.5 - 5.2 mmol/L [facility] CHLORIDE, SERUM 97 96 - 106 mmol/L [facility] CARBON DIOXIDE, TOTAL 27 20 - 29 mmol/L [facility] CALCIUM, SERUM 9.7 8.7 - 10.2 mg/dL [facility] PROTEIN, TOTAL, SERUM 7.0 6.0 - 8.5 g/dL [facility] ALBUMIN, SERUM 4.3 4.1 - 5.1 g/dL [facility] GLOBULIN, TOTAL 2.7 1.5 - 4.5 g/dL [facility] A/G RATIO 1.6 1.2 - 2.2 [facility] BILIRUBIN, TOTAL 0.8 0.0 - 1.2 mg/dL [facility] ALKALINE PHOSPHATASE, SERUM 52 44 - 121 IU/L [facility] AST (SGOT) 46(H) 0 - 40 IU/L [facility] ALT (SGPT) 57(H) 0 - 44 IU/L [facility] Blood Blood / Unknown 04/11/2023 3 :56 PM EST 04/12/2023 us Lakia Rosales MD LAB - BLOOD DRAW Final Resu lt [facility] [address] [place] [address] from Last 3 Months or Most Recently Relevant to Health Maintenance Insurance [facility] MEDICAID [id number] Member Subscriber Plan / Payer (Ef fective 2020-Present) Name:Dusty Wisdom Relation to Subscriber:Self Name:Dusty Wisdom Payer ID:[id number] Group ID:Not on file Type:Medicaid Address: [facility] [address] [place] [address] [facility] MEDICAID [id number] Member Subscriber Plan / Payer (Ef fective 2022-Present) Name:Dusty Wisdom Relation to Subscriber:Self Name:Dusty Wisdom Payer ID:[id number] Group ID:Not on file Type:Medicaid Address: [address] [place] [address]
--- OUTSIDE RECORDS SUMMARY | 2025-01-25 07:24 | XMS_ITS | Clinical Summary ---
Author Organization [facility] [place] [address] Care Team Providers Care Holistic Nutritionist Name Role Phone Nonstaff, [facility] Primary Care Provider [phone] Allergies Active Allergy Reactions Criticality Noted Date Comments Lamotrigine Rash High 07/02/2022 Medications ibuprofen (MOTRIN) 400 mg tablet Take 1 Tab by mouth three times a day as needed 30 Tab 5 Active methaDONE (METHADOSE) 40 mg dispersable tablet Take 8 Tab by mouth Active gabapentin (NEURONTIN) 300 mg capsule Take 1 Cap by mouth three times a day 45 Cap 5 Active ramelteon (ROZEREM) 8 mg tablet Take 1 Tab by mouth at bedtime 7 Tab 5 Active collagenase (SANTYL) 250 unit/gram topical ointmentIndicati ons:Non-viable tissue present Apply 1 (one) application topically in the morning. Apply a thin layer to wound(s) once daily. Wound location: Left buttock wound Cleanse with: Vashe Apply Santyl to wound bed Gently pack with Vashe moistened gauze, cover with dry gauze Secure with: Bordered foam dressing Change Dressing: Daily and as needed 30 g Active Active Problems Problem Noted Date Diagnosed Date Sepsis 07/27/2024 Homeless 07/27/2024 Mood disorder 07/27/2024 Seizure 07/27/2024 Gluteal abscess 07/14/2024 Hepatitis C IVDU (intravenous drug user), remission since Overview (07/27/2024): remission since 2023 Resolved Problems Problem Noted Date Diagnosed Date Resolved Date Human immunodeficiency virus (HIV) disease 07/27/2024 Immunizations Immunization Administration Dates Next Due DTP 02/23/1990, 7,1985,1985,1985 Haemophilus influenzae type b vaccine, PRP-T conjugate 08/09/1988 Hepatitis B Vaccine Adult 06/24/1998,12/23/1997, 11/25/1997 Influenza, Seasonal, Injectable 03/10/2014 Measles, Mumps and Rubella v irus vaccine 12/23/1997,07/08/1986 TDaP 06/25/2022,02/24/2022 Td (adult), 2 Lf tetanus tox oid, PF, adsorbed 11/25/1997 Tetanus Toxoid, Absorbed 11/23/2008 Trivalent Poliovirus Vaccine , live, oral 02/23/1990,11/21/1986,1985,1985 Social History Tobacco Use Types Packs/Day Years Used Date Smoking Tobacco: Former Cigarettes Q uit: 03/28/2020 Smokeless Tobacco: Never Tobacco Cessation:Counseling Given: Not Answered Alcohol Use Standard Drinks/Week Comments Not Currently 0 (1 standard drink = 0.6 oz pur e alcohol) [employer] Answer Date Recorded In the past 12 months has e [employer], gas, oil, or water [employer] threatened to shut off services in your home? No 07/27/2024 Humiliation, Afraid, Rape, and Kick questionnair e Answer Date Recorded Within the last year, have y ou been afraid of your partner or ex-partner? No 07/27/2024 Within the last year, have y ou been humiliated or emotionally abused in other ways by your partner or ex-partner? No Within the last year, have y ou been kicked, hit, slapped, or otherwise physically hurt by your partner or ex-partner? No 07/27/2024 Within the last year, have y ou been raped or forced to have any kind of sexual activity by your partner or ex-partner? No 07/27/2024 AUDIT-C Answer Date Recorded Q1: How often do you have a drink containing alc ohol? Monthly or less 07/27/2024 Q2: How many drinks containi ng alcohol do you have on a typical day when you are drinking? 1 or 2 07/27/2024 Q3: How often do you have si x or more drinks on one occasion? Never 07/27/2024 Hunger Vital Sign Answer Date Recorded Within the past 12 months, y ou worried that your food would run out before you got the money to buy more. Sometimes true Within the past 12 months, t he food you bought just didn't last and you didn't have money to get more. Sometimes true 04/2024 PRAPARE - Transportation Answer Date Re corded In the past 12 months, has l ack of transportation kept you from medical appointments or from getting medications? Yes 04/2024 In the past 12 months, has l ack of transportation kept you from meetings, work, or from getting things needed for daily living? Yes 07/27/2024 Housing Stability Vital Sign Answer Neo e Recorded In the last 12 months, was t here a time when you were not able to pay the mortgage or rent on time? No 07/27/2024 In the past 12 months, how m any times have you moved where you were living? 0 07/27/2024 At any time in the past 12 m [facility], were you homeless or living in a long-term (including now)? Yes 07/27/2024 Sex and Gender Information Value Date Recorded Sex Assigned at Not on file Legal Sex Male 4:27 PM EDT Gender Identity Not on file Sexual Orientation Not on file Last Filed Vital Signs Vital Sign Reading Time Taken Comments Blood Pressure 97/57 07/30/2024 11:57 AM EDT Pulse 54 07/30/2024 11:57 AM EDT Temperature 36.6 C (97.8 F) 07/30/2024 11:57 AM EDT Respiratory Rate 12 07/30/2024 11:57 AM EDT Oxygen Saturation 95% 07/30/2024 11:57 AM EDT Inhaled Oxygen Concentration - - Weight 68.1 kg (150 lb 1.6 oz) 07/27/2024 3:20 P M EDT Height 180.3 cm (5' 11 ) 07/27/2024 12:35 AM EDT Body Mass Index 20.93 07/27/2024 12:35 AM EDT Plan of Treatment Health Maintenance Due Date Last Done Comments Meningococcal Vaccines (1 - Risk 2-dose series) 1987 COVID-19 Vaccines (#1) 1990 Hepatitis A Vaccines (1 of 2 - Risk 2-dose series) 2004 Pneumococcal Vaccines: Pediatrics (0 to 5 Years) and At-Risk Patients (6 to 49 Years) (1 of 2 - PCV) 2004 HPV Vaccines (1 - Risk 3-dose SCDM series) 2012 Influenza Vaccines 11/26/2024 03/10/2014 DTaP/Tdap/Td Vaccines (8 - Td or Tdap) 06/25/2032 06/25/2022, 02/24/2022, 11/25/1997, Additional history exists HIB Vaccines Completed 08/09/1988 IPV Vaccines Completed 02/23/1990, 10/27, 1985, Additional history exists HISTORICAL VIEW: MMR Vaccines Discontinued 12/23/1997, 07/08/1986 Hepatitis B Vaccines Completed 06/24/1998, 12/23/1997, 11/25/1997 HIV Screening Completed 07/27/2024 HISTORICAL VIEW: Varicella Vaccines Discontinued Rotavirus Vaccines Aged Out No longer eligible based on patient's age to complete this topic Additional Health Concerns Infection Onset Date Last Indicated MRSA 07/14/2024 07/15/2024 Insurance [employer] [place] [employer] Advance Directives For more information, please contact: [phone] * Total Support (Latest Code Status on File) Date Activated Date Inactivated Comments 07/27/2024 3:15 PM 07/30/2024 5:25 PM * Total Support Date Activated Date Inactivated Comments 07/27/2024 9:54 AM 07/27/2024 3:15 PM * Total Support Date Activated Date Inactivated Comments 07/14/2024 7:08 PM 07/17/2024 7:41 PM Care Teams Holistic Nutritionist Relationship Specialty Start Date End Date Raquel García [place] [phone] (Work) PCP - General 05/24/23
--- OUTSIDE RECORDS SUMMARY | 2025-01-25 07:24 | XMS_ITS ---
Author Organization [facility] Care Team Providers Care Sand Plant Attendant Name Role Phone Uziel Atkins Unavailable Unavailable Allergies and adverse reactions No Known Allergies Care Team Name Role Address Phone Organization Dates Uziel Atkins PCP [address] [facility] [address] [place], [address], [place] (Office): [employer] 03/01/2022 - 03/08/2022 Mental Status Section Date Assessment Total Score Description 03/08/2022 BIMS 15 cognitively int act CAM 0 No delirium ind icated PHQ-9 02 minimal depress ion 03/05/2022 BIMS 15 cognitively int act CAM 0 No delirium ind icated PHQ-9 02 minimal depress ion Problems Problem # Description Date of onset Resolved Date Code CodeSystem Concern Status 1 ACUTE PAIN DUE TO TRAUMA 03/04/[address] active 2 FALL FROM, OUT OF OR THROUGH WINDOW, SUBSEQUENT ENCOUNTER 02/28/[address] active 3 FRACTURE OF OTHER PARTS OF PELVIS, SUBSEQUENT ENCOUNTER FOR FRACTURE WITH ROUTINE HEALING 02/28/[address] active 4 OTHER FRACTURE OF FIRST LUMBAR VERTEBRA, SUBSEQUENT ENCOUNTER FOR FRACTURE WITH ROUTINE HEALING 02/28/[address] active 5 PAIN IN LEFT HIP 02/28/[address] a ctive Reason for Referral No Reasons for Referral Entered Social History Social History Observation Description Start Date End Date Code Code System Current Smoking Status Tobacco smoking consumption unknown 152682980 SNOMED CT Sex Assigned At Male 1985 [address] Gender Identity Sexual Orientation Vital Signs Code Code System Vitals Name Values and Units Timing Information 86290-9 LOINC Weight Otrvv=454.0 Units=Lbs 02/2022 9279-1 LOINC Respiratory Rate Value=18.0 Units=/m in 03/08/2022 8462-4 LOINC Blood Pressure-Diastolic Value=68 Un its=mmHg 03/08/2022 8480-6 LOINC Blood Pressure-Systolic Lexqo=771 Un its=mmHg 03/08/2022 8310-5 LOINC Body Temperature Value=97.6 Units= F 03/08/2022 8867-4 LOINC Heart rate Value=73.0 Units=/min 02/2022 94262-0 INC O2 % BldC Oximetry Value=99.0 Units= % 03/08/2022 78445-3 LOINC Pain Level Value=0.0 03/07/2022 8302-2 LOINC Height Value=71.0 Units=Inches 03/01/2022
[2025-01-25] MEDS: SULFAMETHOXAZOLE/TRIMETHOPRIM 800-160 MG TABLET 1 TAB PO (07:29)
[2025-01-25] MEDS: CEPHALEXIN 500 MG CAPSULE PO (07:29)
--- NOTE | 2025-01-25 07:32 | ED_ITS ---
HPI HPI - General Adult General Chief complaint: Skin/Abscess/Foreign Body Stated complaint: localized swelling - buttocks Time Seen by Provider: 01/25/25 07:11 Source: patient Mode of arrival: walk-in History of Present Illness HPI narrative: Patient is a 39-year-old male, currently in drug rehabilitation center and has a history of recurrent soft tissue abscesses, presenting to the emergency department for concerns of soft tissue infection in his buttocks. Patient states that over the last few days he has had localized pain and swelling in the bilateral buttocks. He states he was prescribed Bactrim and Keflex, however the staff at the inpatient rehab has yet to provide him with his medications. He states he feels generally unwell, but has had no fevers, chills, nausea, vomiting, chest pain, or shortness of breath. Still still urinating and having normal bowel movements. Related Data Home Medications ?Medication ?Instructions ?Recorded ?Confirmed venlafaxine 37.5 mg tablet 37.5 mg PO DAILY 01/25/25 0 01/25/25 Allergies Allergy/AdvReac Type Severity Reaction Status Date / Time No Known Drug Allergies Allergy Verified 01/25/25 07:10 Opioid HPI Opioid Management Most Recent Opioid Data: Last Pain Scale 8 Today, 07:16 Review of Systems ROS Status of ROS 10 or more systems reviewed and unremark able except as noted in history and below PFSH PFSH Social History Little interest or pleasure in doing things: not at all Feeling down, depressed, or hopeless: not at all Exam Narrative Exam Narrative: CONSTITUTIONAL: Well-appearing, answering questions and following commands appropriately SKIN: On the bilateral gluteal cleft there are 2 areas of erythema, induration, and tenderness palpation approximately 3 cm in size. There is no palpable fluctuance. No crepitus. No purulent drainage. No involvement of the rectum/perirectal area. EYES: Sclerae white. EARS, NOSE, THROAT: Moist oral mucosa. RESPIRATORY: Nonlabored respirations. CARDIOVASCULAR: Normal rate and regular rhythm. There is no S3, S4, murmur, rub. GASTROINTESTINAL: Abdomen is nondistended. MUSCULOSKELETAL: No peripheral edema. NEUROLOGIC: Patient is awake and alert. Constitutional Vital Signs, click to edit/add: Last Vital Signs Temp 99.6 F 01/25/25 07:11 Pulse 92 H 01/25/25 07:11 Resp 16 01/25/25 07:11 BP 140/87 01/25/25 07:11 Pulse Ox 98 01/25/25 07:11 O2 Del Method Room Air 01/25/25 07:11 Course Vital Signs Vital signs: Vital Signs Temperature 99.6 F 01/25/25 07:11 Pulse Rate 92 H 01/25/25 07:11 Respiratory Rate 16 01/25/25 07:11 Blood Pressure 140/87 01/25/25 07:11 Pulse Oximetry 98 01/25/25 07:11 Oxygen Delivery Method Room Air 01/25/25 07:11 Temperature 99.6 F 01/25/25 07:11 Pulse Rate 92 H 01/25/25 07:11 Respiratory Rate 16 01/25/25 07:11 Blood Pressure 140/87 01/25/25 07:11 Pulse Oximetry 98 01/25/25 07:11 Oxygen Delivery Method Room Air 01/25/25 07:11 Medical Decision Making MDM Narrative Medical decision making narrative: Patient is a 39-year-old male presenting to the emergency department from an inpatient drug rehabilitation center for concerns of a soft tissue infection in his bilateral gluteal cleft/buttocks. His vital signs arrival are within normal limits. He is afebrile and hemodynamically stable. Examination as noted above. He overall is well-appearing and exhibits no signs of systemic illness. Patient's history and physical examination is consistent with cellulitis of the b/l gluteal cleft, and possibly small abscesses. There is no involvement of the sacrum or rectal/perirectal region to suggest perirectal abscess or pilonidal cyst/abscess. There is not a large area of fluctuance that would be amenable to I&D. The infection will likely drain and heal with antibiotics/warm compresses. He was given a dose of Bactrim and Keflex while here in the ED. I do believe the patient is stable for discharge. They were instructed to follow up with their PCP for further care. Return precautions were given including any new or worsening symptoms. They were given a written prescription for Bactrim DS and Keflex 500 mg twice daily x 7 days. They are also given a paper prescription for ibuprofen. Patient understands and agrees to the plan. FINAL IMPRESSION: #Acute cellulitis of the bilateral buttocks DISPOSITION: Discharged home CONDITION: Good Discharge Plan Discharge Chief Complaint: Skin/Abscess/Foreign Body Clinical Impression: Cellulitis Patient Disposition: Home, Self-Care Time of Disposition Decision: 08:00 Condition: Good Mode of Transportation: Private Vehicle Prescriptions / Home Meds: No Action venlafaxine 37.5 mg tablet 37.5 mg PO DAILY Print Language: Armenian Instructions: Cellulitis (ED), Warm Compress or Soak (ED) Referrals: Physician,Non-Staff, MD [Primary Care Provider] - 1 week
== END 2025-01-25 08:12 | disposition home or self-care (01) ==
PROVIDERS: Emergency Provider Student in an Organized Health Care Education/Training Program
DX: L03.317 Cellulitis of buttock (principal)
CPT/HCPCS: 99283

== ENCOUNTER 2025-01-26 17:10 | Emergency (ER) | payer OTHER, SELFPAY ==
--- OUTSIDE RECORDS SUMMARY | 2014-06-30 09:04 | XMS_ITS | Continuity of Care Document ---
Author Organization [facility] Address [address] [facility] [address] [place] [address] Phone Care Team Providers Care Automatic Winder Operator Name Role Phone Trinity Leigh Unavailable Unavailable [...] Diagnoses Date Provider Providers Copied on Encounter [facility], [address], [place], [place], [address], tel:[phone] [facility] No Information 5 Justen Petersen. [address] [place], [place], [id number] , [place]. tel: [phone] [facility], [address] [facility] [address], [place], [place], [address], [place] tel:[phone] [facility] Depressive disorder, not elsewhere classified 5 Justen Petersen. [address] [place], [place], [address] , [place]. tel: [phone] OFFICE VISIT/EST LEVEL III [facility], [address] [facility] [address], [place], [place], [address], [place] tel:[phone] [facility] depression (chief complaint) Depressive disorder, not elsewhere classifiedAnxiet y state, unspecified 5 Justen Petersen. [address] [place], [place], [address] , [place]. tel: [phone] OFFICE VISIT/EST LEVEL III [facility], [address] [facility] [address], [place], [place], [address], [place] tel:[phone] [facility] depression (chief complaint)I nsomnia (chief complaint)A DD (chief complaint) Anxiety state, unspecifiedInsom niaADHD (attention deficit hyperactivity disorder) 4 Justen Petersen. [address] [place], [place], [address] , [place]. tel: [phone] OFFICE VISIT/EST LEVEL III [facility], [address] [facility] [address], [place], [place], [address], [place] tel:[phone] [facility] depression (chief complaint)I nsomnia (chief complaint) InsomniaAnxiety state, unspecified 0 - 4 Justen Petersen. [address] [place], [place], [address] , [place]. tel: [phone] OFFICE VISIT/[facility] III [facility], [address] [facility] [address], [place], [place], [address], [place] tel:[phone] [facility] establish care (chief complaint)d epression (chief complaint)I nsomnia (chief complaint) Anxiety state, unspecifiedDepre ssive disorder, not elsewhere classifiedUnspec ified viral hepatitis C without hepatic comaInsomnia 201 4 Justen Petersen. [address] [facility], [place], [place], [address] , [place]. [phone] Family History Family Member Type Diagnosis Age At Onset Brother Problem (finding) Anxiety Brother Problem (finding) GERD Mother Problem (finding) Crohn's disease Immunizations Vaccine Date Status Comments Flu Quad (MDV) 3 and up administered Source: New Immuniza tion Record Payers Payer name Insurance type Covered republican ID Authoriza tion(s) [employer] Medicaid CI [id number] [facility] [id number] [employer] [place] [id number] [facility] [id number] Social History Type Description Quantity Date Captured [...] pt having some side effects of impotence. depression The patient does not present with difficulty falling asleep or difficulty staying asleep. Additional information: pt states meds help. Insomnia The patient pres ents for insomnia. The patient has the following risk factors for insomnia: use of alcohol. The patient is experiencing depression. The patient denies changes in appetite, difficulty initiating sleep or difficulty maintaining sleep. Additional information: pt states meds help. Insomnia [...] Information Instructions Date Instruction Additional Infor maryam Follow up with counselor Related to Depressive disorder, not elsewhere classified med side effects can mimic symptoms of depression; notify for undesired sex Related to Depressive disorder, not elsewhere classified Take medication(s) as prescribed Related to Depressive disorder, not elsewhere classified 911 or ER for suicid al/homicidal ideation Related to Depressive disorder, not elsewhere classified med side effects can mimic symptoms of depression; notify for undesired sex Related to Anxiety state, unspecified Take medication(s) as prescribed Related to Anxiety state, unspecified 911 or ER for suicid al/homicidal ideation Related to Anxiety state, unspecified Take medication(s) as prescribed Related to Anxiety state, unspecified 911 or ER for suicid al/homicidal ideation Related to Anxiety state, unspecified med side effects can mimic symptoms of depression; notify for undesired sex Related to Anxiety state, unspecified med side [...]
[2025-01-26 17:14] VITALS: BP 137/90; PULSE 84; TEMP 36.7; O2SAT 98; BMI 27.2
--- OUTSIDE RECORDS SUMMARY | 2025-01-26 17:28 | XMS_ITS | Clinical Summary ---
Author Organization [facility] Address [address] [place] [phone] Phone Care Team Providers Care Field Operations Coordinator Name Role Phone Maryse Zelaya APRN Primary Care Physician + Conditions or Problems Problem Name Problem Code Onset Date Status Entry Date Provider Comment Standard Description Annotate Body mass index (BMI) 25.0-25.9; adult Z68.25 (ICD-10-CM) 09/27 Active 09/28 Gabriela Lam APRN Body mass index [BMI] 25.0-25.9, adult Body mass index (BMI) 22.0-22.9; adult Z68.22 (ICD-10-CM) 08/13 Correction 08/14 Gabrielagabe Lam APRN Body mass index [BMI] 22.0-22.9, adult Cellulitis of right buttock [id number] (SNOMED CT) 09/27 Active 09/27 Gabrielagabe Lam APRN Cellulitis of right buttock Body mass index (BMI) 22.0-22.9; adult Z68.22 (ICD-10-CM) 08/13 Removed 08/14 Gabriela Dontaedelli HEATING OPERATORS ENGINEER Body mass index [BMI] 22.0-22.9, adult Abscess, skin 79020696 (SNOMED CT) 08/13 Active 08/14 Gabriela Diggsdelli HEATING OPERATORS ENGINEER Abscess of skin and/or subcutaneous tissue Tobacco User [id number] (SNOMED CT) 08/03 Active 08/05 Maryse Zelaya APRN Tobacco user Mood disorder 80374406 (SNOMED CT) 08/03 Active 08/03 Maryse Zelaya HEATING OPERATORS ENGINEER Mood disorder Wound infection 46823890 (SNOMED CT) 08/03 Active 08/03 Maryse Zelaya HEATING OPERATORS ENGINEER Local infection of wound Substance abuse 61963567 (SNOMED CT) 08/03 Active 08/03 Maryse Zelaya HEATING OPERATORS ENGINEER Substance abuse Opioid abuse in remission 834095037 (SNOMED CT) 08/03 Active 08/03 Maryse Zelaya HEATING OPERATORS ENGINEER Nondependent harmful pattern of use of opioid in remission Medications Medication Instructions Start Date Stop Date Generic Name NDC Provider Observed no known medication s at Medications Administered No information available. Allergies, Adverse Reactions, Alerts Allergy Name Reaction Description Start Date Severity Statu s Provider LAMICTAL Critical Active Maryse Zelaya HEATING OPERATORS ENGINEER Results No information available. Plan of Care Type Date Detail Referral Psychiatry Refer [facility] General Patient education Patient Educat ion Given Procedures Code Procedure Name Date Entry Date [facility]-[id number] Medication Reconciliation CPT-3074F Most recent systolic blood pressure <130 mm Hg CPT-3079F Most recent diastoli c blood pressure 80-89 mm Hg CPT-1159F Medication list docu mented in medical record CPT-1160F Review of all medica tions by a prescribing practitioner [facility]-[id number] Current every day smoker 20 20/10/01 [id number] Giving encouragement to exercise [id number] Medication Reconciliation CPT-3074F Most recent systolic blood pressure <130 mm Hg CPT-3079F Most recent diastoli c blood pressure 80-89 mm Hg CPT-1159F Medication list docu mented in medical record CPT-1160F Review of all medica tions by a prescribing practitioner [facility]-[id number] Current every day smoker 20 20/08/17 [id number] Smoking cessation education PSYCH GEN Psychiatry Referral General CPT-3074F Most recent systolic blood pressure <130 mm Hg CPT-3078F Most recent diastoli c blood pressure <80 mm Hg [id number] Medication Reconciliation 4004F Patient screened for tobacco use and received tobacco cessation intervention [id number] Current every day smoker 20 21/08/07 [id number] Smoking cessation education Vital Signs Date Name Value Unit Description BMI (Body Mass Index) 25.41 kg/m2 Bod y Mass Index (Ratio) Body Temperature 98.5 [degF] temperat ure E&M Body Temperature 36.94 Pam temperat ure in centigrade E&M BP Diastolic 84 mm[Hg] blood pressu re, diastolic BP Systolic 121 mm[Hg] blood pressur e, systolic BSA (Body Surface Area) 2.03 b mina surface area Heart Rate 77 /min pulse rate Height 71 [in_us] height E&M Height 180.34 cm height in cent imeters E&M Weight Measured 82.5 kg weight in kilograms E&M Weight Measured 181.5 [lb_av] weight E& M Weight Measured 181.5 [lb_av] weight E& M Immunizations No information available. Advance Directives No information available.
--- OUTSIDE RECORDS SUMMARY | 2025-01-26 17:29 | XMS_ITS | Clinical Summary ---
Author Organization [facility] Address [address] [place], [place] [address] Phone Care Team Providers Care Live Study Manager Name Role Phone No Pcp, Per Patient [...] Contact [facility] [address] Jayla Maria MD Medical clearance for psychiatric [...] & nares Added from external infection. Source: [employer], [facility]. 07/14/2024 Insurance LEAVITT [facility] DAGMAR [facility] DAGMAR [employer] [facility] [place] [address] Care Teams Live Study Manager Relationship Specialty Start Date End Date No Pcp, Per Patient PCP - General 10/21/24
--- OUTSIDE RECORDS SUMMARY | 2025-01-26 17:29 | XMS_ITS | Clinical Summary ---
Author Organization [facility] Address [address], [address] [place] [address] Care Team Providers Care Front End Software Engineer Name Role Phone Unavailable Primary Care Provider Unavailabl e Allergies No known active allergies Medications ibuprofen (ADVIL;MOTRIN) 600 MG tablet Take 1 tablet by mouth every 6 hours as needed for Pain 30 tablet 0 10/06/2015 Active Multiple Vitamins-Minera ls (THERAPEUTIC MULTIVITAMIN-VA NERALS) tablet Take 1 tablet by mouth [...] ramon Non-react ramon 01/12/2022 3:05 AM EDT [facility] Hep B Core Ab, IgM Non-react ramon Non-react ramon 01/12/2022 12:57 PM EDT [facility] Hep B S Ag Interp Non-react ramon Non-react ramon 01/12/2022 3:05 AM EDT [facility] Hep C Ab Interp REACTIVE( A) Non-react ramon 01/12/2022 1:59 PM EDT [facility] Comment: REACTIVE Screen: Confirmation with Hepatitis C RIBA not available. Depending on clinical history, Hepatitis C Virus (HCV)by Quantitative NAAT ([id number]) should be considered as an alternative to this test although it is not an equivalent. If HCV by Quantitative NAAT is desired, please reorder. A new sample may be needed due to specimen requirements for HCV by Quantitative NAAT. 01/11/2022 1:57 PM EDT 01/12/2022 1:04 AM EDT Narrative [facility] - 01/12/2022 2:00 PM EDT CALL doctor [id number] tel. [phone], [phone] us Lakia Santa UTILITY ARBORIST - COMPUTER GAME DESIGNER IMMUNOLOGY ORDERABL ES Final Result [facility] [address] [facility] [phone] * HIV Screen (01/11/2022 1:57 PM EDT) HIV Ag/Ab Non-Reacti ve Non-reacti ve 01/12/2022 1:45 PM EDT [facility] HIV-1 Antibody Non-Reacti ve Non-reacti ve 01/12/2022 1:45 PM EDT [facility] HIV ANTIGEN Non-Reacti ve Non-reacti ve 01/12/2022 1:45 PM EDT [facility] HIV-2 Ab Non-Reacti ve Non-reacti ve 01/12/2022 1:45 PM EDT [facility] 01/11/2022 1:57 PM EDT 01/12/2022 1:04 AM EDT Narrative [facility] - 01/12/2022 12:35 PM EDT CALL doctor [id number] tel. [phone], [phone] Lakia Santa UTILITY ARBORIST - COMPUTER GAME DESIGNER IMMUNOLOGY ORDERABL ES Edited Result - Final [facility]. [address] [phone] from Last 3 Months or Most Recently Relevant to Health Maintenance Insurance [facility] MEDICAID
--- OUTSIDE RECORDS SUMMARY | 2025-01-26 17:29 | XMS_ITS | Clinical Summary ---
Author Organization [facility] Address [address] [place] [id number] Care Team Providers Care Wood Room Supervisor Name Role Phone Unknown, Attending Provider Primary [...] therelease of HIV test results or diagnoses. [id number] Allergies Active Allergy Reactions Criticality Noted Date Comments Bupropion Other (See Comments) 06/11/2022 seizures Lamotrigine Rash High 07/02/2022 Medications * This document contains information received from the source organization and may not represent a complete record from that organization. levETIRAcetam (KEPPRA) 500 MG tabletIndication s:Focal epilepsy ([facility]) Take 1 tablet (500 mg total) by [...] 11/25/1997, Additional history exists Hepatitis C Screening (Mebelramat) Completed 7, 03/28/2017 HIV Screening Completed 03/29/2017 Medical Devices Implanted Type Area Kettle Room Helper Device Identifier Shelf Expiration Date Model / Serial / Lot Nail 9mm 345mm Tib T2 Im Std - [id number] Implanted:Qty: 1 on 03/28/2017 by Mil Benavides MD at [facility] Main Orthopedic Left: Tibia DARRON [employer] 12/26/2021 [id number] S / / [id number] Scr Bn 5mm 35mm Ti Ft Lck Strl - [id number] Implanted:Qty: 1 on 03/28/2017 by Mil Benavides MD at [facility] Main Screw Left: Tibia [employer] 12/26/2021 [id number] S / / [id number] Scr Bn 5mm 45mm Ti Ft Lck Strl - [id number] Implanted:Qty: 1 on 03/28/2017 by Mil Benavides MD at [facility] Main Screw Left: Tibia [employer] 11/25/2021 [id number] S / / [id number] Scr Bn 5mm 40mm Ti Ft Lck Strl - [id number] Implanted:Qty: 1 on 03/28/2017 by Mil Benavides MD at [facility] Main Screw Left: Tibia [employer] 11/25/2021 [id number] S / / [id number] Scr Bn 5mm 50mm Ti Ft Lck Strl - [id number] Implanted:Qty: 1 on 03/28/2017 by Mil Benavides MD at [facility] Main Screw Left: Tibia [employer] 12/26/2021 [id number] S / / [id number] Scr Bn 5mm 35mm Ti Ft Lck Strl - [id number] Implanted:Qty: 1 on 03/28/2017 by Mil Benavides MD at [facility] Main Screw Left: Tibia [employer] 12/26/2021 [id number] S / / [id number] Procedures Procedure Name Priority Date/Time Associated Diagnosis Comments HIV 1+2 ANTIBODY/ANTIGEN WITH REFLEX Routine 03/29/2017 10:52 AM EST HEPATITIS C ANTIBODY Routine 03/28/2017 8:06 PM EST from Last 3 Months or Most Recently Relevant to Health Maintenance Results * HIV 1+2 Antibody/Antigen with Reflex (03/29/2017 10:52 AM EST) HIV 1+2 AB/AGN Nonreactive Nonreactive 03/29/2017 11:51 AM EST [facility] Serum specimen (specimen) 03/29/2017 10:52 AM EST 03/29/2017 11:07 AM EST [facility] - 03/29/2017 11:51 AM EST HIV-1 p24 Antigen and HIV-1/HIV-2 Antibody not detected. Andrade Toscano MD LAB BLOOD ORDERABLES Final Resul t [facility] [address] * (ABNORMAL) Hepatitis C Antibody (03/28/2017 8:06 PM EST) HCV Ab Reactive( A) Nonreactive 03/28/2017 9:47 PM EST [facility] Comment: Health Department notified in accordance with reportable infectious disease guidelines. Health Department notified in accordance with reportable infectious disease guidelines. HCVAB Number 13.30(H) 0.00 - 0.79 S/CO 03/28/2017 9:47 PM EST [facility] Serum specimen (specimen) 03/28/2017 8:06 PM EST 03/28/2017 8:20 PM EST Narrative [facility] - 03/28/2017 9:47 PM EST Presumptive evidence of antibodies to HCV: follow CDC recommendations for supplemental testing. Lila Garcia MD LAB BLOOD ORDERABLES Final Result [facility] [address] [place] [address], [facility] from Last 3 Months or Most Recently Relevant to Health Maintenance Insurance [employer] Member Subscriber Plan / Payer (Ef fective 2017-Present) Name:Dusty Wisdom Relation to Subscriber:Self Name:Dusty Wisdom Payer ID:[id number] Group ID:Not on file Type:Work Comp Address: [address] [place] [address] Advance Directives For more information, please contact: [phone] * Full Code (Latest Code Status on File) Date Activated Date Inactivated Comments 02/11/2021 10:49 PM 02/14/2021 3:03 PM * Full Code Date Activated Date Inactivated Comments 03/27/2017 4:44 PM 03/29/2017 9:01 PM Care Teams Wood Room Supervisor Relationship Specialty Start Date End Date Unknown, Attending Provider PCP - General 06/17/22 Richie Schulz Consulting Physician [facility] Neurology 09/26/23
--- OUTSIDE RECORDS SUMMARY | 2025-01-26 17:29 | XMS_ITS | Clinical Summary ---
Author Organization [facility] 06 Care Team Providers Care Director Of Advertising Sales Name Role Phone Pcp, None Primary Care Provider [phone] Allergies Active Allergy Reactions Criticality Noted Date Comments None 08/23/2002 Medications naloxone 4 mg/0.1 mL LIQD nasal spray SIG: [place] one puff into one nostril upon signs [...] patient's age to complete this topic Insurance [facility] MEDICAID on file Advance Directives * Full Code (Latest Code Status on File) Date Activated Date Inactivated Comments 06/26/2022 12:19 AM 06/26/2022 8:47 PM Care Teams Director Of Advertising Sales Relationship Specialty Start Date End Date Pcp, None, PCP - General Internal Medicine 11/08/15
--- OUTSIDE RECORDS SUMMARY | 2025-01-26 17:29 | XMS_ITS | Clinical Summary ---
Author Organization [facility] Address [address] [place] [address] Care Team Providers Care Tax Evaluator Name Role Phone Unavailable Primary Care Provider [...] Screen 04/28/2024 04/11/2023 Depression Annual Screen 04/28/2024 [id number] ( season) 2024 Imm-Influenza (#1) 2024 03/10/2014 [...] EIA NEGATIVE NEGATIVE 08/02/2023 1:03 PM EDT [facility] Blood Blood / Unknown 07/31/2023 7 :25 AM EDT 07/31/2023 9:30 PM EDT Narrative [facility] ALEXA CHANELE - 08/02/2023 1:06 PM [...] LAB - BLOOD DRAW Final Resul t [facility] [address] [facility] [place] [address] [facility] [address] [place] [address] * HIV 1/2 AG & AB W/RFLX (4TH GEN) (07/31/2023 7:25 AM EDT) HIV AG/AB, 4TH GEN NON-REACTI VE NON-REACT JOY 08/01/2023 3:04 PM EDT [facility] ALVAREZ Blood Blood / Unknown 07/31/2023 7 :25 AM EDT 07/31/2023 9:30 PM EDT Narrative [facility] ALEXA CHANELE - 08/01/2023 3:11 PM [...] . For additional information please refer to http://education.foodjunky/faq/BYT749 (This link is being provided for informational/ educational purposes only.) . . The performance of this assay has not been clinically validated in patients less than 2 years old. . [facility] - BLOOD DRAW Final Resul t [facility] [address] [facility] [place] [address] [facility] [address] [place] [address] * (ABNORMAL) COMPREHENSIVE METABOLIC PANEL (04/11/2023 3:56 PM EST) GLUCOSE, SERUM 75 70 - 99 mg/dL [facility] BUN 17 6 - 20 mg/dL [facility] CREATININE, SERUM 1.24 0.76 - 1.27 mg/dL [facility] eGFR 76 >59 mL/min/1.7 3 [facility] BUN/CREATININE RATIO 14 9 - 20 [facility] SODIUM, SERUM 137 134 - 144 mmol/L [facility] POTASSIUM, SERUM 4.6 3.5 - 5.2 mmol/L [facility] CHLORIDE, SERUM 97 96 - 106 mmol/L [facility] CARBON DIOXIDE, TOTAL 27 20 - 29 mmol/L [facility] CALCIUM, SERUM 9.7 8.7 - 10.2 mg/dL [facility] PROTEIN, TOTAL, SERUM 7.0 6.0 - 8.5 g/dL [facility] ALBUMIN, SERUM 4.3 4.1 - 5.1 g/dL [facility] GLOBULIN, TOTAL 2.7 1.5 - 4.5 g/dL [facility] A/G RATIO 1.6 1.2 - 2.2 [facility] BILIRUBIN, TOTAL 0.8 0.0 - 1.2 mg/dL [facility] ALKALINE PHOSPHATASE, SERUM 52 44 - 121 IU/L [facility] AST (SGOT) 46(H) 0 - 40 IU/L [facility] ALT (SGPT) 57(H) 0 - 44 IU/L [facility] Blood Blood / Unknown 04/11/2023 3 :56 PM EST 04/12/2023 us Lakai Rosales MD LAB - BLOOD DRAW Final Resu lt [facility] [address] [place] [address] from Last 3 Months or Most Recently Relevant to Health Maintenance Insurance [facility] MEDICAID [id number] Member Subscriber Plan / Payer (Ef fective 2020-Present) Name:Dusty Wisdom Relation to Subscriber:Self Name:Dusty Wisdom Payer ID:[id number] Group ID:Not on file Type:Medicaid Address: [facility] [address] [place] [address] [facility] MEDICAID [id number] Member Subscriber Plan / Payer (Ef fective 2022-Present) Name:Dusty Wisdom Relation to Subscriber:Self Name:Dusty Wisdom Payer ID:[id number] Group ID:Not on file Type:Medicaid Address: [address] [place] [address]
--- OUTSIDE RECORDS SUMMARY | 2025-01-26 17:29 | XMS_ITS | Clinical Summary ---
Author Organization [facility] Address [address] [place] [address] Care Team Providers Care Quality Technician Fiberglass Name Role Phone Unavailable Primary Care Provider Unavailabl e Encounters Date Type Department Care Team Description 12/01/2024 Lab Requisition [facility] [address] [place] [id number] Gurwinder Araiza, PhD 11/30/2024 Lab Requisition [facility] [address] [place] [id number] Gurwinder Araiza, PhD from Last 3 Months Social History Tobacco Use Types Packs/Day Years Used Date Smoking Tobacco: Never Assessed Sex and Gender Information Value Date Recorded Sex Assigned at Not on file Legal Sex Male 11:02 AM EDT Gender Identity Not on file Sexual Orientation Not on file Plan of Treatment Not on file Procedures Procedure Name Priority Date/Time Associated Diagnosis Comments HEPATITIS C VIRUS (HCV) RNA, QUANTITATIVE PCR, PLASMA/SERUM Routine 11/28/2024 3:51 PM EDT BLOOD TB SCREEN, INCUBATED Routine 11/28/2024 3:49 PM EDT from Last 3 Months Results * (ABNORMAL) HEPATITIS C VIRUS (HCV) RNA, QUANTITATIVE PCR, PLASMA/SERUM (11/28/2024 3:51 PM EDT) HCV RNA Detected( A) Not detected PARMINDER DILCIA 6800 12/02/2024 4:23 AM EDT [facility] HCV RNA (IU/mL) 30,900,00 0(H) IU/mL PARMINDER DILCIA 6800 12/02/2024 4:23 AM EDT [facility] HCV RNA (log IU/mL) 7.49(H) Log IU/mL [facility]MIND[facility] DILCIA 6800 12/02/2024 4:23 AM EDT [facility] Blood BLOOD SPECIMEN / Unknown 11/28/2024 3:51 PM EDT 12/01/2024 3:11 PM EDT Narrative [facility] - 12/02/2024 4:23 AM EDT dilcia HCV is an in vitro nucleic acid amplification test for both the detection and quantitation of hepatitis C virus RNA, in human EDTA plasma or serum, of HCV antibody positive or HCV-infected individuals. The linear range of the assay is 15 to 100,000,000 IU/mL (1.18 - 8.00 log IU/mL). The lower limit of detection of the assay is 15 IU/mL. us Gurwinder Araiza PhD LABORATORY Final Resul t [facility] [address] [facility] [address] [address], * (ABNORMAL) BLOOD TB SCREEN, INCUBATED (11/28/2024 3:49 PM EDT) TB Nil 0.12 <=8.00 IU/mL 12/03/2024 9:37 AM EDT [facility] TB1 Ag minus Nil 1.57(H) <0.35 IU/mL 12/03/2024 9:37 AM EDT [facility] TB2 Ag minus Nil 1.52(H) <0.35 IU/mL 12/03/2024 9:37 AM EDT [facility] TB Result Positive 12/03/2024 9:37 AM EDT [facility] Mitogen minus Nil >9.88 >=0.50 IU/mL 12/03/2024 9:37 AM EDT [facility] TB Gamma Interpretation The result suggests an infection with either M. tuberculosis complex and/or any of M. kansasii, M. szulgai, M. marinum, and M. flavescens; however, active and latent infections cannot be distinguished by this test. A positive result may not be reliable if obtained within several months of a Tuberculin Skin Test. Clinical and epidemiological correlation is required. 12/03/2024 9:37 AM EDT [facility] Blood BLOOD SPECIMEN / Unknown 11/28/2024 3:49 PM EDT 12/01/2024 9:31 PM EDT Narrative [facility] - 12/03/2024 9:37 AM EDT Result rechecked. us Gurwinder Araiza PhD LABORATORY Final Resul t [facility] [address] [address], [place] from Last 3 Months
--- OUTSIDE RECORDS SUMMARY | 2025-01-26 17:29 | XMS_ITS | Encounter Summary ---
Author Organization [facility] Address [address] [place], [place] [id number] Care Team Providers Care Lithograph Press Operator Name Role Phone Unavailable Primary Care Provider Unavailabl e Source Comments In the event this information is protected by the Federal Confidentiality of Alcohol and Drug AbusePatient Records regulations: The Federal rules restrict any use of the information to criminally investigate or prosecute any alcohol or drug abuse patient.[facility] Encounter Details Date Type Department Care Team (Late st Contact Info) Description 11/30/2024 Lab Requisition [facility] [address] [place] [phone] Gurwinder Araiza, PhD [address] [place], [place] [id number] Social History Tobacco Use Types Packs/Day Years Used Date Smoking Tobacco: Never Assessed Sex and Gender Information Value Date Recorded Sex Assigned at Not on file Legal Sex Male 11:02 AM EDT Gender Identity Not on file Sexual Orientation Not on file documented as of this encounter Plan of Treatment Not on file documented as of this encounter Procedures Procedure Name Priority Date/Time Associated Diagnosis Comments BLOOD TB SCREEN, INCUBATED Routine 11/28/2024 3:49 PM EDT documented in this encounter Results * (ABNORMAL) BLOOD TB SCREEN, INCUBATED (11/28/2024 3:49 PM EDT) TB Nil 0.12 <=8.00 IU/mL 12/03/2024 9:37 AM EDT [facility] TB1 Ag minus Nil 1.57(H) <0.35 IU/mL 12/03/2024 9:37 AM EDT [facility] TB2 Ag minus Nil 1.52(H) <0.35 IU/mL 12/03/2024 9:37 AM EDT [facility] TB Result Positive 12/03/2024 9:37 AM EDT [facility] Mitogen minus Nil >9.88 >=0.50 IU/mL 12/03/2024 9:37 AM EDT [facility] TB Gamma Interpretation The result [...] correlation is required. 12/03/2024 9:37 AM EDT [facility] Blood BLOOD SPECIMEN / Unknown 11/28/2024 3:49 PM EDT 12/01/2024 9:31 PM EDT Narrative [facility] - 12/03/2024 9:37 AM EDT Result rechecked. us Gurwinder Araiza PhD LABORATORY Final Resul t [facility] [address] [facility] [place] [address], documented in this encounter Visit Diagnoses Not on filedocumented in this encounter
--- OUTSIDE RECORDS SUMMARY | 2025-01-26 17:29 | XMS_ITS | Encounter Summary ---
Author Organization [facility] Address [address] [place], [place] [phone] Care Team Providers Care News Producer Name Role Phone Unavailable Primary Care Provider Unavailabl e Source Comments In the event this information is protected by the Federal Confidentiality of Alcohol and Drug AbusePatient Records regulations: The Federal rules restrict any use of the information to criminally investigate or prosecute any alcohol or drug abuse patient.[facility] Encounter Details Date Type Department Care Team (Late st Contact Info) Description 12/01/2024 Lab Requisition [facility] [address] [place] [address] Gurwinder Araiza, PhD [address] [place], [place] [phone] Social History Tobacco Use Types Packs/Day Years [...] PCR, PLASMA/SERUM Routine 11/28/2024 3:51 PM EDT documented in this encounter Results * (ABNORMAL) HEPATITIS C VIRUS (HCV) RNA, QUANTITATIVE PCR, PLASMA/SERUM (11/28/2024 3:51 PM EDT) HCV RNA Detected( A) Not detected [facility] DILCIA 6800 12/02/2024 4:23 AM EDT [facility] HCV RNA (IU/mL) 30,900,00 0(H) IU/mL PARMINDER DILCIA 6800 12/02/2024 4:23 AM EDT [facility] HCV RNA (log IU/mL) 7.49(H) Log IU/mL PARMINDER DILCIA 6800 12/02/2024 4:23 AM EDT [facility] Blood BLOOD SPECIMEN / Unknown 11/28/2024 3:51 PM EDT 12/01/2024 3:11 PM EDT [facility] - 12/02/2024 4:23 AM EDT dilcia [...] Gurwinder Araiza PhD LABORATORY Final Resul t [facility] [address] [facility] [address] [address], documented in this encounter Visit Diagnoses Not on filedocumented in this encounter
--- OUTSIDE RECORDS SUMMARY | 2025-01-26 17:30 | XMS_ITS | Clinical Summary ---
Author Organization [facility] [place] [address] Care Team Providers Care Mold Mover Name Role Phone Nonstaff, [facility] Primary Care Provider [phone] Allergies Active Allergy Reactions Criticality Noted Date [...] drink = 0.6 oz pur e alcohol) DCITS Answer Date Recorded In the past 12 months has e [employer], gas, oil, or water [employer] threatened to shut off services in your [...] any time in the past 12 m [facility], were you homeless or living in a detention (including now)? Yes 07/27/2024 Sex and Gender [...] Advance Directives For more information, please contact: [phone] * Total Support (Latest Code Status on File) Date Activated Date Inactivated Comments 07/27/2024 3:15 PM 07/30/2024 5:25 PM * Total Support Date Activated Date Inactivated Comments 07/27/2024 9:54 AM 07/27/2024 3:15 PM * Total Support Date Activated Date Inactivated Comments 07/14/2024 7:08 PM 07/17/2024 7:41 PM Care Teams Mold Mover Relationship Specialty Start Date End Date Raquel García [place] [phone] (Work) PCP - General 05/24/23
--- OUTSIDE RECORDS SUMMARY | 2025-01-26 17:30 | XMS_ITS ---
Author Organization [facility] Care Team Providers Care Instructor Kindergarten Name Role Phone Uziel Atkins Unavailable Unavailable Allergies and adverse reactions No Known Allergies Care Team Name Role Address Phone Organization Dates Uziel Atkins PCP [address], [place], [address], [place] (Office): [employer] 03/01/2022 - 03/08/2022 Mental Status Section Date [...] 1 ACUTE PAIN DUE TO TRAUMA 03/04/[address] active 2 FALL FROM, OUT OF OR THROUGH WINDOW, SUBSEQUENT ENCOUNTER 02/28/[address] active 3 FRACTURE OF OTHER PARTS OF PELVIS, SUBSEQUENT ENCOUNTER FOR FRACTURE WITH ROUTINE HEALING 02/28/[address] active 4 OTHER FRACTURE OF FIRST LUMBAR VERTEBRA, SUBSEQUENT ENCOUNTER FOR FRACTURE WITH ROUTINE HEALING 02/28/[address] active 5 PAIN IN LEFT HIP 02/28/[address] a ctive Reason for Referral No Reasons for Referral Entered Social History Social History Observation Description Start Date End Date Code Code System Current Smoking Status Tobacco smoking consumption unknown 255307094 SNOMED CT Sex Assigned At Male 1985 [address]-[facility] Gender Identity Sexual Orientation Vital Signs Code Code System Vitals Name Values and Units Timing Information 76675-8 LOINC Weight Mpxgu=656.0 Units=Lbs 02/2022 9279-1 LOINC Respiratory Rate Value=18.0 Units=/m in 03/08/2022 8462-4 LOINC Blood Pressure-Diastolic Value=68 Un its=mmHg 03/08/2022 8480-6 LOINC Blood Pressure-Systolic Xxkea=697 Un its=mmHg 03/08/2022 8310-5 LOINC Body Temperature Value=97.6 Units= F 03/08/2022 8867-4 LOINC Heart rate Value=73.0 Units=/min 02/2022 45108-6 INC O2 % BldC Oximetry Value=99.0 Units= % 03/08/2022 79673-4 LOINC Pain Level Value=0.0 03/07/2022 8302-2 LOINC Height Value=71.0 Units=Inches 03/01/2022
[2025-01-26] MEDS: LIDOCAINE HCL 1% 100 MG/10 ML MDV INJ (18:24)
--- NOTE | 2025-01-26 18:52 | ED.GENADUL1 ---
HPI HPI - General Adult General Chief complaint: Skin/Abscess/Foreign Body Stated complaint: CELULITUS Time Seen by Provider: 01/26/25 17:51 Source: patient Mode of arrival: walk-in History of Present Illness HPI narrative: The patient initially came to the ER to be evaluated for left buttock abscess that he developed over the last few days he was already started on antibiotic Keflex and Bactrim but apparently the patient's pain was getting worse, he also had fever at [facility] where he is there due to detox Before my arrival the patient had his abscess started draining on his pants Related Data Home Medications ?Medication ?Instructions ?Recorded ?Confirmed venlafaxine 37.5 mg tablet 37.5 mg PO DAILY 01/25/25 01/25/25 buprenorphine 128 mg/0.36 mL 128 mg subcut DAILY 01/26/25 01/26/25 solution,ext.rel.subcutaneous syringe (Brixadi Monthly) cephalexin 250 mg capsule 250 mg PO QID 01/26/25 01/26/25 cholecalciferol (vitamin D3) 50 50 mcg PO QAM 01/26/25 01/26/25 mcg (2,000 unit) tablet magnesium oxide 500 mg PO QPM PRN muscle spasm 01/26/25 01/26/25 omega 7-kmo-nls-fish oil 300 1 cap PO QAM 01/26/25 01/26/25 mg-1,000 mg capsule Allergies Allergy/AdvReac Type Severity Reaction Status Date / Time No Known Drug Allergies Allergy Verified 01/25/25 07:10 Opioid HPI Opioid Management Most Recent Opioid Data: Last Pain Scale 8 01/25/25, 07:16 Review of Systems ROS Status of ROS 10 or more systems reviewed and unremarkable except as noted in history and below PFSH PFSH Social History Little interest or pleasure in doing things: not at all Feeling down, depressed, or hopeless: not at all Exam Narrative Exam Narrative: Nurses notes and vital signs reviewed and patient is not hypoxic. General: Well-appearing and in no apparent distress. Skin: Warm, dry, no pallor noted. No rash. Head: Normocephalic, atraumatic. GI: Abdomen is soft, non-distended. Normal bowel sounds. No masses appreciated. No tenderness to palpation. No rebound, guarding, or rigidity noted. Left buttock examination showed that the patient have 10 cm abscess in the left upper buttock area, almost 12 cm away from his rectum, there is significant induration on both sides and absence almost to drain 20 cc spontaneously Neurological: A&O x4. No cranial nerve dysfunction observed. No truncal ataxia. Moves all extremities. Sensation intact. Psychiatric: Cooperative and interactive. Normal mood and affect. Constitutional Vital Signs, click to edit/add: Last Vital Signs Temp 98.0 F 01/26/25 17:14 Pulse 84 01/26/25 17:14 Resp 18 01/26/25 17:14 BP 137/90 01/26/25 17:14 Pulse Ox 98 01/26/25 17:14 O2 Del Method Room Air 01/26/25 17:14 Course Vital Signs Vital signs: Vital Signs Temperature 98.0 F 01/26/25 17:14 Pulse Rate 84 01/26/25 17:14 Respiratory Rate 18 01/26/25 17:14 Blood Pressure 137/90 01/26/25 17:14 Pulse Oximetry 98 01/26/25 17:14 Oxygen Delivery Method Room Air 01/26/25 17:14 Temperature 98.0 F 01/26/25 17:14 Pulse Rate 84 01/26/25 17:14 Respiratory Rate 18 01/26/25 17:14 Blood Pressure 137/90 01/26/25 17:14 Pulse Oximetry 98 01/26/25 17:14 Oxygen Delivery Method Room Air 01/26/25 17:14 Medical Decision Making MDM Narrative Medical decision making narrative: After cleaning the area and flushing the abscess I did end up injecting the area of the lidocaine 1% almost 10 cc Then after that the patient had the area packed with almost 15 cm of packing CBC and chemistry were ordered and the patient also will have CAT scan with contrast just to rule out any underlying abscess as well Workup is pending and that care will be transferred to Dr. Kramer Discharge Plan Discharge Patient Disposition: Still a Patient
--- NOTE | 2025-01-26 18:53 | CT_ITS ---
The [address] [address] Patient Name: RIC TAVAREZ MRN: [id number] date: 1985 Sex: M Assigned Patient Location: ER Current Patient Location: ER Accession/Order Number: [id number] Exam Date: 01/26/2025 19:43 Report Date: 01/26/2025 20:39 At the request of: MATTHEW DUNLAP MD Procedure: CT abdomen pelvis w con CT Abdomen and Pelvis withcontrast TECHNIQUE: Axial imaging with 2-D reconstruction. The CT exam was performed using one or more the following dose reduction techniques: Automated exposure control, adjustment of the MA and/or Kv according to patient size, or use of the iterative reconstruction technique. COMPARISON: None History: Left buttocks abscess LIMITATIONS: None LOWER THORAX Unremarkable LIVER: Unremarkable GALLBLADDER: No gallbladder abnormality identified. BILE DUCTS: No dilatation SPLEEN: Unremarkable PANCREAS: Unremarkable ADRENAL GLANDS: Unremarkable KIDNEYS:Unremarkable AORTA: No abdominal aortic aneurysm identified. RETROPERITONEUM: No significant retroperitoneal abnormalities identified. MESENTERY:Unremarkable STOMACH:Unremarkable SMALL BOWEL: The small bowel loops are nondistended. APPENDIX: The appendix is normal. COLON: Moderate burden of stool throughout the colon. URINARY BLADDER: Urinary bladder is unremarkable. REPRODUCTIVE SYSTEM: Reproductive structures are unremarkable. PNEUMOPERITONEUM: None PERITONEAL FLUID:None BONY STRUCTURES: Unremarkable ABDOMINAL WALL: Unremarkable in the left portion of the gluteal crease appears 2 cm air-fluid collection consistent with history of left buttocks abscess. This is localized to the subcutaneous region. No fistulization. No rectal extension. No intraperitoneal extension. CT/CT abdomen pelvis w con IMPRESSION: 2 cm subcutaneous left buttocks abscess. No fistulization. Impression dictated by: Yimi Mcqueen M.D. 01/26/2025 8:39 PM Dictation Location: [facility]ION Electronically authenticated by: [id number] Y Date: 01/26/2025 20:39
[2025-01-26 19:04] LABS: Hematocrit 40.2 % (42.0-54.0); Hemoglobin 14.3 g/dL (14.0-18.0); Mean Corpuscular HGB Conc 35.6 g/dL (29.9-35.2); Mean Corpuscular Hemoglobin 30.4 pg (25.9-34.0); Mean Corpuscular Volume 85.4 fL (80.0-94.0); Platelet Count 310 10^3/uL (150-450); Red Blood Count 4.71 10^6/uL (4.70-6.10); White Blood Count 15.4 10^3/uL (4.0-11.0)
[2025-01-26 19:17] LABS: Alanine Aminotransferase 20 U/L (16-63); Albumin Globulin Ratio 0.7; Albumin Level 3.5 g/dL (3.4-5.0); Alkaline Phosphatase 69 U/L (46-116); Anion Gap 11.9; Blood Urea Nitrogen 17.0 mg/dL (7.0-18.0); Calcium 9.2 mg/dL (8.5-10.1); Carbon Dioxide 29.2 mmol/L (21.0-32.0); Chloride 100 mmol/L (98-107); Estimated GFR (African America >60 (>=60 mL/min/1.73m^2); Estimated GFR (Non-African Ame >60 (>=60 mL/min/1.73m^2); Globulin 4.9 g/dL; Glucose 86 mg/dL (74-106); Sodium 137 mmol/L (136-145); Total Protein 8.4 g/dL (6.4-8.2)
[2025-01-26 19:19] LABS: Basophils Abs Manual 0.00 10^3/uL (0.00-0.10); Basophils Percent Manual 0.0 % (0.2-2.0); Eosinophils Absolute Manual 0.30 10^3/uL (0.00-0.70); Eosinophils Percent Manual 2.0 % (0.9-7.0); Lymphocytes Absolute Manual 1.84 10^3/uL (1.20-3.80); Lymphocytes Percent Manual 12.0 % (20.5-60.0); Monocytes Absolute Manual 1.84 10^3/uL (0.30-0.80); Monocytes Percent Manual 12.0 % (1.7-12.0); Segmented Neut Absolute Manual 11.39 10^3/uL (1.4-6.5); Segmented Neutrophils % Manual 74.0 (43.0-75.0)
[2025-01-26 19:20] LABS: Aspartate Amino Transferase 25 U/L (15-37); Potassium 4.1 mmol/L (3.5-5.1)
[2025-01-26] MEDS: PIPERACILLIN SODIUM/TAZOBACTAM 4.5 GM in 0.9 % SODIUM CHLORIDE 50 ML IV (19:21)
[2025-01-26] MEDS: KETOROLAC TROMETHAMINE 30 MG/ML VIAL IVP (19:21)
== END 2025-01-26 21:09 | disposition home or self-care (01) ==
PROVIDERS: Emergency Medicine; Emergency Provider Internal Medicine
DX: L02.31 Cutaneous abscess of buttock (principal)
CPT/HCPCS: 36415; 74177; 80053; 85007; 85027; 87070; 87075; 87186; 96365; 96375; 99285; J1885; J2543; Q9967

== ENCOUNTER 2025-01-28 16:45 | Emergency (ER) | payer OTHER, SELFPAY ==
[2025-01-28 16:58] VITALS: BP 116/78; PULSE 85; TEMP 37; O2SAT 97; BMI 27.2
--- NOTE | 2025-01-28 17:21 | ED_ITS ---
HPI - Recheck/Abnormal Lab/Rx General Chief Complaint: Recheck/Abnormal Lab/Rx Stated Complaint: ABSCESS Time Seen by Provider: 01/28/25 17:05 Source: patient Mode of arrival: walk-in Limitations: no limitations History of Present Illness HPI narrative: The patient is a 39-year-old male presenting to the Emergency Department for reevaluation of a left buttock abscess, now on his third ED visit for the same issue. He initially presented on January 25 with a painful area on the left buttock and was prescribed Keflex (cephalexin) and Bactrim (trimethoprim- sulfamethoxazole). He returned on January 26, at which time the area was incised and drained, with wound packing placed, and cultures obtained (results still pending as of today). Antibiotics were continued. He had lab work and a CT scan at that time that did not show extension of the area in to the rectal area.. He returns today stating that the pain has worsened, and he had the packing fall out and the facility he is out does not want to repack it despite three. He reports that the packing may have fallen out while showering. He denies fevers, chills, lightheadedness, body aches, nausea, vomiting, urinary symptoms, or bowel changes. He remains afebrile and has not had any systemic symptoms since his initial visit. Related Data Home Medications ?Medication ?Instructions ?Recorded ?Confirmed venlafaxine 37.5 mg tablet 37.5 mg PO DAILY 01/25/25 0 01/25/25 buprenorphine 128 mg/0.36 mL 128 mg subcut DAILY 01/2601/26/25 solution,ext.rel.subcutaneous syringe (Brixadi Monthly) cephalexin 250 mg capsule 250 mg PO QID 01/26/2501/26 cholecalciferol (vitamin D3) 50 50 mcg PO QAM 01/26/25 01/26/25 mcg (2,000 unit) tablet magnesium oxide 500 mg PO QPM PRN muscle spa sm 01/26/25 01/26/25 omega 2-jsg-hzv-fish oil 300 1 cap PO QAM 01/26/2505/22 mg-1,000 mg capsule Allergies Allergy/AdvReac Type Severity Reaction Status Date / Time No Known Drug Allergies Allergy Verified 01/28/25 16:57 PFSH PFSH Social History Little interest or pleasure in doing things: not at all Feeling down, depressed, or hopeless: not at all Exam Narrative Exam Narrative: General: Alert, cooperative, no acute distress. * Vital Signs: * BP: 116/78 * HR: 85 * RR: 18 * Temp: 98.6?F * O2 Sat: 97% on room air * Skin: * Left buttock: ~3 cm open abscess cavity with purulent drainage. Round, with surrounding erythema. * No fluctuance or active bleeding noted. * No signs of cellulitis extending beyond localized area. * No lymphangitic streaking or inguinal lymphadenopathy. * Cardiovascular: RRR, no murmurs. * Respiratory: Clear to auscultation bilaterally. * GI: Abdomen soft, nontender, no guarding or rebound. * Neuro: Alert and oriented ?3. Constitutional Vital Signs, click to edit/add: Last Vital Signs Temp 98.6 F 01/28/25 16:58 Pulse 93 H 01/28/25 19:10 Resp 16 01/28/25 19:10 BP 98/50 01/28/25 19:10 Pulse Ox 97 01/28/25 19:10 O2 Del Method Room Air 01/28/25 19:10 Course Vital Signs Vital signs: Vital Signs Temperature 98.6 F 01/28/25 16:58 Pulse Rate 85 01/28/25 16:58 Respiratory Rate 18 01/28/25 16:58 Blood Pressure 116/78 01/28/25 16:58 Pulse Oximetry 97 01/28/25 16:58 Oxygen Delivery Method Room Air 01/28/25 16:58 Temperature 98.6 F 01/28/25 16:58 Pulse Rate 93 H 01/28/25 19:10 Respiratory Rate 16 01/28/25 19:10 Blood Pressure 98/50 01/28/25 19:10 Pulse Oximetry 97 01/28/25 19:10 Oxygen Delivery Method Room Air 01/28/25 19:10 MDM - Recheck/Abnormal Lab/Rx MDM Narrative Medical decision making narrative: This is a return ED visit for a previously I&D?d left buttock abscess from 01/26/2025, with no clinical signs of systemic infection and stable vital signs. The patient is being treated appropriately with broad-spectrum antibiotics (Keflex and Bactrim), and wound cultures are pending. On today's exam, the abscess cavity remains open with ongoing purulent drainage and localized erythema. Packing has fallen out at this point. He goes to [facility] for rehab and the medical there was not wiling to repack the area an wanted it rechecked anyway. The patient reports that the original packing fell out, likely during hygiene. There is no extension of infection, no fluctuance, and no evidence of surrounding cellulitis or systemic involvement. His WBC count has decreased since the last visit (now 6.5), and chemistry is normal. He does have a history of MRSA. Given the improvement in WBC and absence of systemic symptoms, I will continue current antibiotics while awaiting culture results. The wound was cleansed and repacked, and a sterile dressing applied. Wound care referral provided for ongoing outpatient management. He was educated on wound care and signs of worsening infection, and he is afebrile and stable for discharge. Admission was considered however with the improving white count and lessening cellulitic area, continued outpatient with wound care management should be appropriate. He did not show signs of sepsis or worsening infection. Area was repacked with regular packing 1/4 and dressed appropriately. He was invited to return at any time for concerns. DIFFERENTIAL DIAGNOSIS: * Uncomplicated abscess with delayed healing ? most likely * MRSA infection ? being covered by Bactrim; awaiting culture * Cellulitis or soft tissue extension ? no current clinical signs * Inadequate source control (e.g., multiloculated abscess) ? less likely based on repeat I&D and current presentation * Foreign body retention or fistula ? no signs on exam; monitor if non-healing Medical Records Attestation: I reviewed the patient's medical records. Lab Data Attestation: I reviewed the patient's lab results. Labs: Lab Results 01/28/25 Range/Units 17:30 WBC 6.5 (4.0-11.0) 10^3/uL RBC 4.36 L (4.70-6.10) 10^6/uL Hgb 13.1 L (14.0-18.0) g/dL Hct 37.9 L (42.0-54.0) % MCV 86.9 (80.0-94.0) fL MCH 30.0 (25.9-34.0) pg MCHC 34.6 (29.9-35.2) g/dL RDW 12.0 (11.0-15.0) % Plt Count 330 (150-450) 10^3/uL MPV 8.5 L (9.5-13.5) fL Neut % (Auto) 52.9 (43.0-75.0) % Lymph % (Auto) 26.2 (20.5-60.0) % Runnels % (Auto) 10.6 (1.7-12.0) % Eos % (Auto) 9.2 H (0.9-7.0) % Baso % (Auto) 0.6 (0.2-2.0) % Neut # (Auto) 3.4 (1.4-6.5) 10^3/uL Lymph # (Auto) 1.7 (1.2-3.8) 10^3/uL Runnels # (Auto) 0.7 (0.3-0.8) 10^3/uL Eos # (Auto) 0.6 (0.0-0.7) 10^3/uL Baso # (Auto) 0.0 (0.0-0.1) 10^3/uL Abs Immat Gran (auto) 0.03 (0.00-0.03) 10^3/uL Imm/Tot Granulo (auto) 0.5 (0.0-0.5) % Sodium 140 (136-145) mmol/L Potassium 4.4 (3.5-5.1) mmol/L Chloride 103 (98-107) mmol/L Carbon Dioxide 28.3 (21.0-32.0) mmol/L Anion Gap 13.1 BUN 13.0 (7.0-18.0) mg/dL Creatinine 1.05 (0.70-1.30) mg/dL Est GFR ( Amer) >60 (>=60 mL/min/1.73m^2) Est GFR (Non-Af Amer) >60 (>=60 mL/min/1.73m^2) BUN/Creatinine Ratio 12.4 Glucose 83 (74-106) mg/dL Calcium 8.8 (8.5-10.1) mg/dL Discharge Plan Discharge Chief Complaint: Recheck/Abnormal Lab/Rx Clinical Impression: Abscess of skin or subcutaneous tissue Patient Disposition: Home, Self-Care Time of Disposition Decision: 19:25 Condition: Good Prescriptions / Home Meds: No Action venlafaxine 37.5 mg tablet 37.5 mg PO DAILY Brixadi 128 mg/0.36 mL solution, extended rel syringe 128 mg SUBCUT DAILY cephalexin 250 mg capsule 250 mg PO QID Patient Comments: started on 01/24/25 cholecalciferol (vitamin D3) 50 mcg (2,000 unit) tablet 50 mcg PO QAM magnesium oxide 500 mg magnesium tablet 500 mg PO QPM PRN (Reason: muscle spasm) omega 4-ngx-nsi-fish oil 300-1,000 mg capsule 1 cap PO QAM Print Language: Spanish Instructions: Abscess Follow-up (ED) Additional Instructions: Follow up with wound care center [phone]. Call and set up appt km, Referrals: Physician,Non-Staff, MD [Primary Care Provider] - 1 week Discharge Date/Time: 01/28/25 19:48
[2025-01-28] MEDS: PIPERACILLIN SODIUM/TAZOBACTAM 3.375 GM in 0.9 % SODIUM CHLORIDE 50 ML IV (17:34)
[2025-01-28 17:37] LABS: Hematocrit 37.9 % (42.0-54.0); Hemoglobin 13.1 g/dL (14.0-18.0); Immature Granulocytes Abs Auto 0.03 10^3/uL (0.00-0.03); Immature Granulocytes Pct Auto 0.5 % (0.0-0.5); Lymphocytes Absolute Auto 1.7 10^3/uL (1.2-3.8); Mean Corpuscular HGB Conc 34.6 g/dL (29.9-35.2); Mean Corpuscular Hemoglobin 30.0 pg (25.9-34.0); Mean Corpuscular Volume 86.9 fL (80.0-94.0); Platelet Count 330 10^3/uL (150-450); Red Blood Count 4.36 10^6/uL (4.70-6.10); White Blood Count 6.5 10^3/uL (4.0-11.0)
[2025-01-28 17:47] LABS: Anion Gap 13.1; Blood Urea Nitrogen 13.0 mg/dL (7.0-18.0); Calcium 8.8 mg/dL (8.5-10.1); Carbon Dioxide 28.3 mmol/L (21.0-32.0); Chloride 103 mmol/L (98-107); Estimated GFR (African America >60 (>=60 mL/min/1.73m^2); Estimated GFR (Non-African Ame >60 (>=60 mL/min/1.73m^2); Glucose 83 mg/dL (74-106); Potassium 4.4 mmol/L (3.5-5.1); Sodium 140 mmol/L (136-145)
[2025-01-28 19:10] VITALS: BP 98/50; PULSE 93; O2SAT 97
== END 2025-01-28 19:48 | disposition home or self-care (01) ==
PROVIDERS: Physician Assistant; Emergency Provider Emergency Medicine
DX: L02.31 Cutaneous abscess of buttock (principal); Z86.14 Personal history of Methicillin resistant Staphylococcus aureus infection
CPT/HCPCS: 36415; 80048; 85025; 96365; 99284; J2543